=== PATIENT | male | born 2000 | race Two or more races ===

== ENCOUNTER 2022-09-15 17:06 | Inpatient (IN) ==
--- NOTE | 2022-09-15 17:43 | Emergency Department Note ---
Impression & Plan Depression with suicidal ideation ED Provider Note NAME: GEETA HARPER AGE: 22 SEX: M : 2000 ARRIVES VIA: [employer] INFORMANT: Patient, ED PROVIDER(S): Jayy Huitron DO CHIEF COMPLAINT: Depression HPI: The patient is a 22-year-old male who presented to the emergency department with police for an evaluation of mental health issues. The patient was at [facility] for an initial mental health evaluation. He does have a history of depression in the past. Apparently patient's had worsening of his depression especially over the last 2 to 3 weeks. He has had thoughts of suicide as well. The patient denies having any suicidal gestures. He did not use any alcohol or drugs. He denies having any fever or chills. He does complain of a slight cough but he notices it some friends at work of had a cough as well. The patient denies having any definite exposures to COVID-19. The patient was sent to the emergency department FOR thoughts of a possible inpatient treatment. ROS: See above HPI for pertinent positives & negatives. A total of 10 systems reviewed and were otherwise negative. PAST MEDICAL HISTORY: See Below PAST SURGICAL HISTORY: See Below FAMILY HISTORY: See Below SOCIAL HISTORY: See Below HOME MEDICATIONS: See Below ALLERGIES: See Below VITALS: See Below PHYSICAL EXAMINATION: GENERAL: Patient is awake alert in no acute distress patient is resting comfortably and showing no signs of anxiety EYES: The conjunctivae are clear. The pupils are round and reactive. EARS, NOSE, MOUTH AND THROAT: The nose is without any evidence of any deformity. NECK: The neck is nontender and supple. RESPIRATORY: Normal respiratory effort is noted there is no evidence of wheezing rhonchi or rales CARDIOVASCULAR: Regular rate and rhythm noted there no murmurs rubs or gallops normal S1 normal S2. GASTROINTESTINAL: The abdomen is soft. Abdomen is nontender. MUSCULOSKELETAL/EXTREMITIES: There is no evidence of gross deformity full range of motion is noted in the hips and shoulders. SKIN: There is no obvious evidence of any rash. There are no petechiae, pallor or cyanosis noted. NEUROLOGIC: Patient is awake alert and oriented x3. Gait was steady PSYCH: Patient makes good eye contact mostly evaluation. His affect is flat. The patient continues to admit to suicidal ideation with a plan to walk out in front of traffic. MEDICAL DECISION MAKING: The patient is a 22-year-old male who presented to the emergency department for an evaluation of mental health issues. The patient does have a history of depression but this seems to be worsening especially over the course of the last few weeks. He started having depression as well as suicidal ideation. He started voicing a plan with his initial therapy visit with [facility]. For this reaso n he was sent to the emergency department for further evaluation. The patient was medically cleared in the emergency department. The patient was evaluated by the mental health pillowcase cleaner. I discussed the patient's condition with the emergency department mental health pillowcase cleaner. The case was referred to [facility] The patient was felt to be a good candidate for inpatient treatment on [facility]. and ultimately was accepted there. Triage Nursing notes reviewed. Prior medical records reviewed Vital Signs: reviewed and remarkable for no significant abnormalities Differential diagnosis: Mood disorder, infection, hypoglycemia, electrolyte abnormalities, cardiac sources, intracerebral event, toxicologic, trauma, neurologic, as well as other pathologies. ER treatment provided: See below Diagnostics interpreted by me: ECG: none Laboratory studies: As stated above and show below. Imaging studies: See below. Radiographic imaging was reviewed by myself Consultation(s): The patient was referred to [facility] and evaluated in the emergency department by them. Past Med/Surg History Medical History Depression Social History Smoking Status: Never smoker Preferred Language: Belarusian Feels Safe at Home: Yes Gender Identity: Male Home Meds Home Medications Medication Instructions Recorded Confirmed cholecalciferol (vitamin D3) 25 25 mcg PO DAILY 09/15/22 09/15/22 mcg (1,000 unit) tablet (Vitamin D3) omega-3 fatty acids 1 cap PO DAILY 09/15/22 09/15/22 Results & Data (ED) Vital Signs Vital Signs - 24 hr 09/15/22 17:44 Temperature 36.8 C Temperature Source Oral Pulse Rate 68 Pulse Rhythm Regular Pulse Strength Normal Respiratory Rate 16 Respiratory Effort / Characteristics Non-Labored Respiratory Depth Normal Blood Pressure 121/74 Blood Pressure Mean 89 Pulse Oximetry 98 Oxygen Delivery Method Room Air Sepsis Recent Fever Within 48 Hours No Sepsis New/Unexplained Change in Mental Status No Sepsis Action Taken by Nursing No Action Required Home Medications Current Medication List: was personally reviewed by me Laboratory Data Attestation: I reviewed the patient's lab results. 09/15/22 17:35 09/15/22 17:35 Lab Results 09/15/22 09/15/22 09/15/22 Range/Units 17:24 17:35 17:35 WBC 7.07 (4.8-10.8) K/ul RBC 4.88 (4.70-6.10) M/uL Hgb 14.3 (14.0-18.0) g/dl Hct 43.6 (42.0-52.0) % MCV 89.3 (80.0-100.0) fL MCH 29.3 (25.0-34.0) pg MCHC 32.8 (32.0-36.0) g/dL RDW Std Deviation 39.1 (36.4-46.3) fL RDW Coeff of Criss 12.0 (11.5-14.5) % Plt Count 183 (130-400) K/uL MPV 10.5 (9.4-12.4) fL Immature Gran % (Auto) 0.3 % Neut % (Auto) 46.2 % Lymph % (Auto) 41.3 % Gonzales % (Auto) 8.5 % Eos % (Auto) 3.3 % Baso % (Auto) 0.4 % Neut # (Auto) 3.27 (1.40-6.50) K/uL Lymph # (Auto) 2.92 (1.2-3.4) K/uL Gonzales # (Auto) 0.60 H (0.11-0.59) K/uL Eos # (Auto) 0.23 (0-0.50) K/uL Baso # (Auto) 0.03 (0-0.2) K/uL Immature Gran # (Auto) 0.02 (0.01-0.20) K/uL Sodium 140 (136-145) mmol/L Potassium 3.9 (3.5-5.1) mmol/L Chloride 106 (98-107) mmol/L Carbon Dioxide 31 (21-32) mmol/L Anion Gap 3 (3-11) BUN 13 (6-23) mg/dl Creatinine 0.81 (0.6-1.4) mg/dl Est Cr Clr Drug Dosing 128.8 ml/min Est GFR ( Amer) 145.2 ml/min Est GFR (Non-Af Amer) 125.3 ml/min BUN/Creatinine Ratio 16.0 (10-20) Glucose 80 (70-99(Fasting)) mg/dl Calcium 9.8 (8.5-10.1) mg/dl Total Bilirubin 0.8 (0.2-1.0) mg/dl AST 16 (13-39) U/L ALT 10 (7-52) U/L Alkaline Phosphatase 61 (34-104) U/L Total Protein 7.3 (6.0-8.3) gm/dl Albumin 4.7 (3.4-5.0) gm/dl Globulin 2.6 (2.5-4.0) gm/dl Albumin/Globulin Ratio 1.8 (0.9-2) TSH (0.300-4.500) uIu/ml Urine Color Urine Appearance (Clear) Urine pH (4.5-7.5) Ur Specific [place] (1.000-1.030) Urine Protein (Negative) Urine Glucose (UA) (Negative) Urine Ketones (Negative) Urine Blood (Negative) Urine Nitrite (Negative) Urine Bilirubin (Negative) Urine Urobilinogen (Negative) Ur Leukocyte Esterase (Negative) Salicylates (3.0-30) mg/dl Acetaminophen (10-30) ug/ml Ethyl Alcohol mg/dL (<10.0) mg/dl SARS-CoV-2, RNA, NAAT NEGATIVE (NEGATIVE) 09/15/22 09/15/22 09/15/22 Range/Units 17:35 17:35 17:35 WBC (4.8-10.8) K/ul RBC (4.70-6.10) M/uL Hgb (14.0-18.0) g/dl Hct (42.0-52.0) % MCV (80.0-100.0) fL MCH (25.0-34.0) pg MCHC (32.0-36.0) g/dL RDW Std Deviation (36.4-46.3) fL RDW Coeff of Criss (11.5-14.5) % Plt Count (130-400) K/uL MPV (9.4-12.4) fL Immature Gran % (Auto) % Neut % (Auto) % Lymph % (Auto) % Gonzales % (Auto) % Eos % (Auto) % Baso % (Auto) % Neut # (Auto) (1.40-6.50) K/uL Lymph # (Auto) (1.2-3.4) K/uL Gonzales # (Auto) (0.11-0.59) K/uL Eos # (Auto) (0-0.50) K/uL Baso # (Auto) (0-0.2) K/uL Immature Gran # (Auto) (0.01-0.20) K/uL Sodium (136-145) mmol/L Potassium (3.5-5.1) mmol/L Chloride (98-107) mmol/L Carbon Dioxide (21-32) mmol/L Anion Gap (3-11) BUN (6-23) mg/dl Creatinine (0.6-1.4) mg/dl Est Cr Clr Drug Dosing ml/min Est GFR ( Amer) ml/min Est GFR (Non-Af Amer) ml/min BUN/Creatinine Ratio (10-20) Glucose (70-99(Fasting)) mg/dl Calcium (8.5-10.1) mg/dl Total Bilirubin (0.2-1.0) mg/dl AST (13-39) U/L ALT (7-52) U/L Alkaline Phosphatase (34-104) U/L Total Protein (6.0-8.3) gm/dl Albumin (3.4-5.0) gm/dl Globulin (2.5-4.0) gm/dl Albumin/Globulin Ratio (0.9-2) TSH 2.812 (0.300-4.500) uIu/ml Urine Color Urine Appearance (Clear) Urine pH (4.5-7.5) Ur Specific [place] (1.000-1.030) Urine Protein (Negative) Urine Glucose (UA) (Negative) Urine Ketones (Negative) Urine Blood (Negative) Urine Nitrite (Negative) Urine Bilirubin (Negative) Urine Urobilinogen (Negative) Ur Leukocyte Esterase (Negative) Salicylates < 3.0 L (3.0-30) mg/dl Acetaminophen < 3 L (10-30) ug/ml Ethyl Alcohol mg/dL < 10.0 (<10.0) mg/dl SARS-CoV-2, RNA, NAAT (NEGATIVE) 09/15/22 Range/Units 19:49 WBC (4.8-10.8) K/ul RBC (4.70-6.10) M/uL Hgb (14.0-18.0) g/dl Hct (42.0-52.0) % MCV (80.0-100.0) fL MCH (25.0-34.0) pg MCHC (32.0-36.0) g/dL RDW Std Deviation (36.4-46.3) fL RDW Coeff of Criss (11.5-14.5) % Plt Count (130-400) K/uL MPV (9.4-12.4) fL Immature Gran % (Auto) % Neut % (Auto) % Lymph % (Auto) % Gonzales % (Auto) % Eos % (Auto) % Baso % (Auto) % Neut # (Auto) (1.40-6.50) K/uL Lymph # (Auto) (1.2-3.4) K/uL Gonzales # (Auto) (0.11-0.59) K/uL Eos # (Auto) (0-0.50) K/uL Baso # (Auto) (0-0.2) K/uL Immature Gran # (Auto) (0.01-0.20) K/uL Sodium (136-145) mmol/L Potassium (3.5-5.1) mmol/L Chloride (98-107) mmol/L Carbon Dioxide (21-32) mmol/L Anion Gap (3-11) BUN (6-23) mg/dl Creatinine (0.6-1.4) mg/dl Est Cr Clr Drug Dosing ml/min Est GFR ( Amer) ml/min Est GFR (Non-Af Amer) ml/min BUN/Creatinine Ratio (10-20) Glucose (70-99(Fasting)) mg/dl Calcium (8.5-10.1) mg/dl Total Bilirubin (0.2-1.0) mg/dl AST (13-39) U/L ALT (7-52) U/L Alkaline Phosphatase (34-104) U/L Total Protein (6.0-8.3) gm/dl Albumin (3.4-5.0) gm/dl Globulin (2.5-4.0) gm/dl Albumin/Globulin Ratio (0.9-2) TSH (0.300-4.500) uIu/ml Urine Color Yellow Urine Appearance Clear (Clear) Urine pH 5.5 (4.5-7.5) Ur Specific [place] 1.026 (1.000-1.030) Urine Protein Negative (Negative) Urine Glucose (UA) Negative (Negative) Urine Ketones Trace H (Negative) Urine Blood Negative (Negative) Urine Nitrite Negative (Negative) Urine Bilirubin Negative (Negative) Urine Urobilinogen Negative (Negative) Ur Leukocyte Esterase Negative (Negative) Salicylates (3.0-30) mg/dl Acetaminophen (10-30) ug/ml Ethyl Alcohol mg/dL (<10.0) mg/dl SARS-CoV-2, RNA, NAAT (NEGATIVE) Imaging Data Attestation: I personally reviewed and interpreted this imaging study as follows: My Impression: 1 view chest x-ray was obtained in the emergency department. My interpretation is no definite infiltrate Radiologist's Impression: Chest X-Ray 09/15/22 17:21 XR chest 1V portable HISTORY: 22 years-old Male cough acute cough COMPARISON: None TECHNIQUE: AP view of the chest FINDINGS: Cardiomediastinal and hilar silhouettes are within normal limits. No pneumothorax, pleural effusion, airspace consolidation or overt pulmonary edema. Bones appear grossly intact. Mild gaseous distention of the splenic flexure. IMPRESSION: No acute process. ACT 112: Negative or not required by law. The above report was generated using voice recognition software. It may contain grammatical, syntax or spelling errors. Electronically signed by: Arcadio Upton M.D. 09/15/2022 6:32 PM Discharge Plan Visit Data Chief Complaint: Mental Health Evaluation ED Provider: Jayy Huitron Discharge Problem: Depression with suicidal ideation Patient Disposition: Still a Patient Forms Stand Alone Forms: My [facility], Suicide Prevention Resources Prescriptions Prescriptions: No Action cholecalciferol (vitamin D3) [Vitamin D3] 25 mcg (1,000 unit) Tablet 25 mcg PO DAILY [place] 3 Natural Fish Oil Conc Capsule 1 cap PO DAILY Referrals Referrals: PCP,NO [Physician] -
[2022-09-15 18:03] LABS: Basophils # (auto) 0.03 K/uL (0-0.2); Basophils % (auto) 0.4 %; Eosinophils # (auto) 0.23 K/uL (0-0.50); Eosinophils % (auto) 3.3 %; Hematocrit (blood only) 43.6 % (42.0-52.0); Hemoglobin 14.3 g/dl (14.0-18.0); Immature Granulocytes # (auto) 0.02 K/uL (0.01-0.20); Immature Granulocytes % (auto) 0.3 %; Lymphocytes # (auto) 2.92 K/uL (1.2-3.4); Lymphocytes % (auto) 41.3 %; Mean Corpuscular Hemoglobin 29.3 pg (25.0-34.0); Mean Corpuscular Hgb Conc 32.8 g/dL (32.0-36.0); Mean Corpuscular Volume 89.3 fL (80.0-100.0); Mean Platelet Volume 10.5 fL (9.4-12.4); Monocytes % (auto) 8.5 %; Neutrophils # (auto) 3.27 K/uL (1.40-6.50); Neutrophils % (auto) 46.2 %; Platelet Count 183 K/uL (130-400); RDW Standard Deviation 39.1 fL (36.4-46.3); Red Blood Count 4.88 M/uL (4.70-6.10); White Blood Count 7.07 K/ul (4.8-10.8)
[2022-09-15 18:07] LABS: Albumin Globulin Ratio 1.8 (0.9-2); Albumin Level 4.7 gm/dl (3.4-5.0); Bilirubin,Total 0.8 mg/dl (0.2-1.0); Calcium 9.8 mg/dl (8.5-10.1); Creatinine Clr Calc Pharmacy 128.8 ml/min; Est GFR (African American) 145.2 ml/min; Est GFR (Non-African American) 125.3 ml/min; Globulin 2.6 gm/dl (2.5-4.0); Potassium 3.9 mmol/L (3.5-5.1); Total Protein 7.3 gm/dl (6.0-8.3)
[2022-09-15 18:16] LABS: Acetaminophen < 3 ug/ml (10-30); Salicylate < 3.0 mg/dl (3.0-30)
--- NOTE | 2022-09-15 18:33 | XRay Report ---
XR chest 1V portable HISTORY: 22 years-old Male cough acute cough COMPARISON: None TECHNIQUE: AP view of the chest FINDINGS: Cardiomediastinal and hilar silhouettes are within normal limits. No pneumothorax, pleural effusion, airspace consolidation or overt pulmonary edema. Bones appear grossly intact. Mild gaseous distention of the splenic flexure. IMPRESSION: No acute process. ACT 112: Negative or not required by law. The above report was generated using voice recognition software. It may contain grammatical, syntax o r spelling errors. Electronically signed by: Arcadio Upton M.D. 09/15/2022 6:32 PM
[2022-09-15 20:21] LABS: Appearance Urine Clear (Clear); Bilirubin Urine Negative (Negative); Blood Urine Negative (Negative); Color Urine Yellow; Glucose Urine UA Negative (Negative); Ketones Urine Trace (Negative); Leukocyte Esterase Urine Negative (Negative); Nitrite Urine Negative (Negative); Protein Urine Negative (Negative); Specific Gravity Urine 1.026 (1.000-1.030); Urobilinogen Urine Negative (Negative); pH Urine 5.5 (4.5-7.5)
[2022-09-15] MEDS ORDERED: SODIUM CHLORIDE 0.65% NA SOLN 45 ML (OCEAN) PRN (20:35)
[2022-09-15] MEDS ORDERED: MAGNESIUM HYDROXIDE SUSP 30 ML UDC PO PRN (20:35)
[2022-09-15] MEDS ORDERED: ACETAMINOPHEN 325 MG TAB PO PRN (20:35)
[2022-09-15] MEDS ORDERED: BISMUTH SUBSALICYLATE LIQD 236 ML PO PRN (20:35)
[2022-09-15] MEDS ORDERED: ALUMINUM/MAGNESIUM SUSP 30 ML UDC PO PRN (20:35)
[2022-09-15] MEDS ORDERED: hydrOXYzine HCl 25 MG TAB PO PRN ×2 (20:35)
[2022-09-15 21:02] LABS: Amphetamines+Metham, Urine Neg (Neg); Barbiturates, Urine Neg (Neg); Benzodiazepine, Urine Neg (Neg); Cocaine, Urine Neg (Neg); MDMA (Ecstacy), Urine Neg (Neg); Methadone, Urine Neg (Neg); Opiate, Urine Neg (Neg); Phencyclidine, Urine Neg (Neg)
[2022-09-15] MEDS ORDERED: FLUARIX QUADRIVALENT 0.5 ML SYR IM ONE (21:45)
--- NOTE | 2022-09-16 07:32 | History & Physical ---
Date of Service September 16, 2022 Impression / Recommendations Impression Pleasant young man who is beset with ruminations about failure who presents a roughly 7-month history of slowly-worsening depression with rapid worsening over the past 2 weeks. He certainly meets criteria for a severe major depressive episode with anxious distress. His ruminations about various supposed failings may be a depressive symptom, but we will need to monitor for possible OCD. Pt is worried about potential sedating effect of medication and doesn't want to take anything that could impair his focus or concentration. (1) Major depressive disorder, single episode, severe with anxious distress: Present on Admission?: Yes (2) Vitamin D deficiency: Present on Admission?: Yes Plan 09/16/2022: * start bupropion XL 150 mg QAM (unlikely to be sedating, may help with focus/concentration, may address anhedonia) * cholecalciferol 10,000 IU daily (level low despite supposed replacement therapy; I'm concerned that ergocalciferol weekly will be too difficult for him to remember consistently following discharge, so will load with 70,000 IU/wk for 1 month then have him drop to 2,000 IU daily) * pt expresses strong interest in psychotherapy so will try to ensure appointments for this are in place * The patient was admitted to the [facility] ([facility] unit) on q15 min checks (behavioral with suicide precautions) for safety. The patient will participate in group, recreational, and milieu therapies and will be offered additional individual and family sessions as clinically appropriate. Inventory Assets Strengths: intelligent, able to verbalize needs Needs: isolated, highly self-critical Suicide Risk Level Suicide Risk Level: Moderate (q15 min suicide checks) Suicide Risk Level Comments: pt contracts for safety while hospitalized but remains preoccupied with a sense that his life has failed Risk Factors Assessment Male: Yes : No Do You Have Access To A Gun?: No Health Problems: No Mental Health Diagnoses: No Substance Use Disorders: No Previous Attempt: No Family History of Suicide: No Previous Psychiatric Hospitalization: No Protective Factors Assessment Hoahaoism Beliefs: Yes 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 Chief Complaint "I just don't think I can manage". 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 He eventually started thinking of all the toxic chemicals in his lab he could ingest and revealed that thought to a therapist at [facility] who referred him to the ED. Pt reports that about 6 months ago he started to lose interest in his usual activities such as singing in the choir at his [employer]. He's never been very social but began being even less social. He "started ruminating about failure" academically and did see one of his grades drop to a C. His energy declined and he began spending his days in bed and staying up all night trying to complete assignments. He is aware of the reverberating effect of pulling all- nighters and sleeping all day, and isn't sure he can tell which started first. His appetite gradually diminished but he doesn't think his weight has changed. He worries that his ability to focus has been worsening. He has been anhedonic and doesn't have a libido. Pt says that all his life people have told him he "should have more social contact" than he's really been interested in but that he's withdrawn even more over the past few months. He has relatives in [place] but he doesn't talk to them much. The only person with whom he interacts lately is his roommate. Pt tells me he's not sure he really wants to be but he certainly doesn't want to go on feeling like this. He says he "can't take this constant worry". He wrote letters to relatives "to say farewell" and started disposing of his belongings. Past Psychiatric History Current Psychiatric Diagnosis: Depression Previous Psych Admissions: none Do You Have Access To A Gun?: No History of Previous Suicide Attempt: No Allergies Allergy/AdvReac Type Severity Reaction Status Date / Time No Known Allergies Allergy Unverified 09/15/22 21:41 Home Medications Medication Instructions Recorded Confirmed Type cholecalciferol (vitamin D3) 25 25 mcg PO DAILY 09/15/22 09/15/22 History mcg (1,000 unit) tablet (Vitamin D3) omega-3 fatty acids 1 cap PO DAILY 09/15/22 09/15/22 History Family History Family History of: Doesn't Know Alcohol History Hx of Alcohol Use Over the Past 12 Months: No AUDIT Total Score: 0 Smoking Use Have You Smoked or Used Tobacco Products in the Last 30 Days: No Smoking Status: Never smoker Substance History Hx of Prescription Med Misuse Over the Past 12 Months: No Hx of Over the Counter Med Misuse Over the Past 12 Months: No Hx of Inhalent Misuse Over the Past 12 Months: No Hx of Organic Substance Use Over the Past 12 Months: No Hx of Illegal Substances/Street Drug Use Over Past 12 Months: No Problems as a Result of Past Substance Use: None Identified Personal History Living Arrangements: Apartment Beliefs That Will Affect Care: Hoahaoism and Spiritual Patient History Medical History Depression Social History Smoking Status: Never smoker Preferred Language: Ivorian Communication Ability: Effective [employer] Supervisor Required: No Beliefs That Will Affect Care: Hoahaoism and Spiritual Feels Safe at Home: Yes Gender Identity: Male Assistive Devices: None Physical Exam Psychiatric: Orientation: alert, oriented to person, oriented to place and oriented to time Apperance: appropriately dressed and appropriately groomed thin Eye Contact: + poor eye contact (looks to the floor most of the time) Motor Behavior: steady gait and station wrings hands a lot and occasionally rocks back and forth normal latency and rate, very quiet, and abbreviated Affect: + depressed affect and + anxious affect Mood: + depressed mood and + anxious mood Thought Process: + perseveration (on supposed failings) Thought Content: + preoccupation, + cognitive distortions, + worthlessness and + self deprecation Suicidal Thoughts: denies suicidal plan (while in the hospital); + reports suicidal thoughts Homicidal Thoughts: denies homicidal thoughts Hallucinations: no auditory hallucinations and no visual hallucinations Cognition: recent memory grossly intact, remote memory grossly intact and language grossly intact; + attention not intact Estimated Intelligence: + above average estimated intelligence Insight: + fair insight Judgment: + limited judgement Vital Signs (Past 24 Hours): Last Vital Signs Temp 36.8 C 09/16/22 06:35 Pulse 85 09/16/22 06:36 Resp 16 09/16/22 06:35 BP 107/70 09/16/22 06:36 Pulse Ox 98 09/15/22 21:26 O2 Del Method Room Air 09/15/22 21:26 Exam Statement: A physical exam was performed in the ED for the purposes of medical clearance. I accept that physical as correct and adequate for the purposes of the inpatient physical exam. Results & Data ([facility]) Laboratory Results Laboratory Results - last 24 hr 09/15/22 09/15/22 09/15/22 17:24 17:35 17:35 WBC 7.07 RBC 4.88 Hgb 14.3 Hct 43.6 MCV 89.3 MCH 29.3 MCHC 32.8 RDW Std Deviation 39.1 RDW Coeff of Criss 12.0 Plt Count 183 MPV 10.5 Immature Gran % (Auto) 0.3 Neut % (Auto) 46.2 Lymph % (Auto) 41.3 Grant % (Auto) 8.5 Eos % (Auto) 3.3 Baso % (Auto) 0.4 Neut # (Auto) 3.27 Lymph # (Auto) 2.92 Grant # (Auto) 0.60 H Eos # (Auto) 0.23 Baso # (Auto) 0.03 Immature Gran # (Auto) 0.02 Sodium 140 Potassium 3.9 Chloride 106 Carbon Dioxide 31 Anion Gap 3 BUN 13 Creatinine 0.81 Est Cr Clr Drug Dosing 128.8 Est GFR ( Amer) 145.2 Est GFR (Non-Af Amer) 125.3 BUN/Creatinine Ratio 16.0 Glucose 80 Calcium 9.8 Total Bilirubin 0.8 AST 16 ALT 10 Alkaline Phosphatase 61 Total Protein 7.3 Albumin 4.7 Globulin 2.6 Albumin/Globulin Ratio 1.8 25-OH Vitamin D Total TSH Urine Color Urine Appearance Urine pH Ur Specific [place] Urine Protein Urine Glucose (UA) Urine Ketones Urine Blood Urine Nitrite Urine Bilirubin Urine Urobilinogen Ur Leukocyte Esterase Salicylates Urine Opiates Screen Ur Methadone, Qual Acetaminophen Urine Barbiturates Ur Phencyclidine (PCP) U Amphetamin/Meth Scrn MDMA (Ecstasy) Screen U Benzodiazepines Scrn Ur Cocaine Metabolite U Marijuana (THC) Screen Ethyl Alcohol mg/dL SARS-CoV-2, RNA, NAAT NEGATIVE 09/15/22 09/15/22 09/15/22 17:35 17:35 17:35 WBC RBC Hgb Hct MCV MCH MCHC RDW Std Deviation RDW Coeff of Criss Plt Count MPV Immature Gran % (Auto) Neut % (Auto) Lymph % (Auto) [place] % (Auto) Eos % (Auto) Baso % (Auto) Neut # (Auto) Lymph # (Auto) Grant # (Auto) Eos # (Auto) Baso # (Auto) Immature Gran # (Auto) Sodium Potassium Chloride Carbon Dioxide Anion Gap BUN Creatinine Est Cr Clr Drug Dosing Est GFR ( Amer) Est GFR (Non-Af Amer) BUN/Creatinine Ratio Glucose Calcium Total Bilirubin AST ALT Alkaline Phosphatase Total Protein Albumin Globulin Albumin/Globulin Ratio 25-OH Vitamin D Total TSH 2.812 Urine Color Urine Appearance Urine pH Ur Specific [place] Urine Protein Urine Glucose (UA) Urine Ketones Urine Blood Urine Nitrite Urine Bilirubin Urine Urobilinogen Ur Leukocyte Esterase Salicylates < 3.0 L Urine Opiates Screen Ur Methadone, Qual Acetaminophen < 3 L Urine Barbiturates Ur Phencyclidine (PCP) U Amphetamin/Meth Scrn MDMA (Ecstasy) Screen U Benzodiazepines Scrn Ur Cocaine Metabolite U Marijuana (THC) Screen Ethyl Alcohol mg/dL < 10.0 SARS-CoV-2, RNA, NAAT 09/15/22 09/15/22 09/15/22 17:35 19:49 19:49 WBC RBC Hgb Hct MCV MCH MCHC RDW Std Deviation RDW Coeff of Criss Plt Count MPV Immature Gran % (Auto) Neut % (Auto) Lymph % (Auto) [place] % (Auto) Eos % (Auto) Baso % (Auto) Neut # (Auto) Lymph # (Auto) Grant # (Auto) Eos # (Auto) Baso # (Auto) Immature Gran # (Auto) Sodium Potassium Chloride Carbon Dioxide Anion Gap BUN Creatinine Est Cr Clr Drug Dosing Est GFR ( Amer) Est GFR (Non-Af Amer) BUN/Creatinine Ratio Glucose Calcium Total Bilirubin AST ALT Alkaline Phosphatase Total Protein Albumin Globulin Albumin/Globulin Ratio 25-OH Vitamin D Total 20.3 L TSH Urine Color Yellow Urine Appearance Clear Urine pH 5.5 Ur Specific [place] 1.026 Urine Protein Negative Urine Glucose (UA) Negative Urine Ketones Trace H Urine Blood Negative Urine Nitrite Negative Urine Bilirubin Negative Urine Urobilinogen Negative Ur Leukocyte Esterase Negative Salicylates Urine Opiates Screen Neg Ur Methadone, Qual Neg Acetaminophen Urine Barbiturates Neg Ur Phencyclidine (PCP) Neg U Amphetamin/Meth Scrn Neg MDMA (Ecstasy) Screen Neg U Benzodiazepines Scrn Neg Ur Cocaine Metabolite Neg U Marijuana (THC) Screen Neg Ethyl Alcohol mg/dL SARS-CoV-2, RNA, NAAT Current Inpatient Medications Current Inpatient Medications: Current Inpatient Medications Acetaminophen (Acetaminophen 325 Mg Tab) 650 mg PO Q4H PRN PRN Reason: Headache or Minor Fever Stop: 10/15/22 20:34 Al Hydrox/Mg Hydrox/Simethicone (Aluminum/Magnesium Susp 30 Ml Udc) 30 ml PO Q4H PRN PRN Reason: GI Upset Stop: 10/15/22 20:34 Bismuth Subsalicylate (Bismuth Subsalicylate Liqd 236 Ml) 15 ml PO PRN PRN PRN Reason: Loose Stool Stop: 10/15/22 20:34 Hydroxyzine HCl (Hydroxyzine Hcl 25 Mg Tab) 25 mg PO Q4H PRN PRN Reason: Anxiety Stop: 10/15/22 20:34 Hydroxyzine HCl (Hydroxyzine Hcl 25 Mg Tab) 50 mg PO HSZ PRN PRN Reason: Insomnia Stop: 10/15/22 20:34 Magnesium Hydroxide (Magnesium Hydroxide Susp 30 Ml Udc) 30 ml PO DAILY PRN PRN Reason: Constipation Stop: 10/15/22 20:34 Sodium Chloride (Sodium Chloride 0.65% Na Soln 45 Ml ([place])) 1 - 2 sprays NA PRN PRN PRN Reason: Nasal Dryness/Congestion Stop: 10/15/22 20:34
[2022-09-17] MEDS: CHOLECALCIFEROL 5,000 UNITS 125 MCG TAB PO SCH (08:31)
[2022-09-17] MEDS: buPROPion XL 150 MG TABCR PO SCH (08:31)
--- NOTE | 2022-09-17 09:37 | Psychiatric Progress Note ---
Date of Service September 17, 2022 Impression / Recommendations Impression 09/17/2022: Pt has participated fairly well in the milieu. He reports feeling somewhat less overwhelmed but continues to ruminate. He's "not sure" if there have been any adverse effects attributable to having started bupropion XL 150 mg. Pt has not yet been in contact with family. He says he'd prefer to "wait until all the answers are available" (i.e., treatment is settled, outpatient plan is set, prognosis is clear). I suggested this would more appropriately be a series of communications. 09/16/2022: Pleasant young man who is beset with ruminations about failure who presents a roughly 7-month history of slowly-worsening depression with rapid worsening over the past 2 weeks. He certainly meets criteria for a severe major depressive episode with anxious distress. His ruminations about various supposed failings may be a depressive symptom, but we will need to monitor for possible OCD. Pt is worried about potential sedating effect of medication and doesn't want to take anything that could impair his focus or concentration. (1) Major depressive disorder, single episode, severe with anxious distress: (2) Vitamin D deficiency: Plan 09/17/2022: * continue bupropion XL 150 mg QAM * continue cholecalciferol 10,000 IU daily * encourage communication with family 09/16/2022: * start bupropion XL 150 mg QAM (unlikely to be sedating, may help with focus/co ncentration, may address anhedonia) * cholecalciferol 10,000 IU daily (level low despite supposed replacement therapy; I'm concerned that ergocalciferol weekly will be too difficult for him to remember consistently following discharge, so will load with 70,000 IU/wk for 1 month then have him drop to 2,000 IU daily) * pt expresses strong interest in psychotherapy so will try to ensure appointments for this are in place * The patient was admitted to the [facility] ([facility] on q15 min checks (behavioral with suicide precautions) for safety. The patient will participate in group, recreational, and milieu therapies and will be offered additional individual and family sessions as clinically appropriate. Inventory Assets Strengths: intelligent, able to verbalize needs Needs: isolated, highly self-critical Suicide Risk Level Suicide Risk Level: Moderate (q15 min suicide checks) Suicide Risk Level Comments: pt contracts for safety while hospitalized but remains preoccupied with a sense that his life has failed Risk Factors Assessment Male: Yes : No Do You Have Access To A Gun?: No Health Problems: No Mental Health Diagnoses: No Substance Use Disorders: No Previous Attempt: No Family History of Suicide: No Previous Psychiatric Hospitalization: No Protective Factors Assessment Episcopal Beliefs: Yes 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 Chief Complaint "Some better, I think". Review of Systems Sleep Information Total Hours of Sleep: 7.5 Meal Information Percent Meal Consumed - Breakfast: 100 Percent Meal Consumed - Lunch: 100 Percent Meal Consumed - Dinner: 100 Subjective Subjective Patient was seen & assessed and interval progress reviewed with treatment team nursing and social work Physical Exam Psychiatric Orientation: alert, oriented to person, oriented to place and oriented to time Apperance: appropriately dressed and appropriately groomed Eye Contact: + fair eye contact Motor Behavior: steady gait and station Affect: + depressed affect and + anxious affect Mood: + depressed mood and + anxious mood Thought Process: + perseveration (on supposed failings) Thought Content: + preoccupation, + cognitive distortions, + worthlessness and + self deprecation Suicidal Thoughts: denies suicidal plan (while in the hospital); + reports suicidal thoughts Homicidal Thoughts: denies homicidal thoughts Hallucinations: no auditory hallucinations and no visual hallucinations Cognition: recent memory grossly intact, remote memory grossly intact and language grossly intact; + attention not intact Estimated Intelligence: + above average estimated intelligence Insight: + fair insight Judgment: + limited judgement Vital Signs (Past 24 Hours) Last Vital Signs Temp 36.4 C L 09/17/22 06:36 Pulse 80 09/17/22 06:37 Resp 16 09/17/22 06:36 BP 107/63 09/17/22 06:37 Pulse Ox 98 09/15/22 21:26 O2 Del Method Room Air 09/15/22 21:26 Results & Data ([facility]) Current Inpatient Medications Current Inpatient Medications: Current Inpatient Medications Acetaminophen (Acetaminophen 325 Mg Tab) 650 mg PO Q4H PRN PRN Reason: Headache or Minor Fever Stop: 10/15/22 20:34 Al Hydrox/Mg Hydrox/Simethicone (Aluminum/Magnesium Susp 30 Ml Udc) 30 ml PO Q4H PRN PRN Reason: GI Upset Stop: 10/15/22 20:34 Bismuth Subsalicylate (Bismuth Subsalicylate Liqd 236 Ml) 15 ml PO PRN PRN PRN Reason: Loose Stool Stop: 10/15/22 20:34 Bupropion HCl (Bupropion Xl 150 Mg Tabcr) 150 mg PO QAM ILYA Stop: 10/17/22 08:59 Last Admin: 09/17/22 08:31 Dose: 150 mg Hydroxyzine HCl (Hydroxyzine Hcl 25 Mg Tab) 25 mg PO Q4H PRN PRN Reason: Anxiety Stop: 10/15/22 20:34 Hydroxyzine HCl (Hydroxyzine Hcl 25 Mg Tab) 50 mg PO HSZ PRN PRN Reason: Insomnia Stop: 10/15/22 20:34 Magnesium Hydroxide (Magnesium Hydroxide Susp 30 Ml Udc) 30 ml PO DAILY PRN PRN Reason: Constipation Stop: 10/15/22 20:34 Sodium Chloride (Sodium Chloride 0.65% Na Soln 45 Ml ([place])) 1 - 2 sprays NA P RN PRN PRN Reason: Nasal Dryness/Congestion Stop: 10/15/22 20:34 Vitamin D (Cholecalciferol 5,000 Units 125 Mcg Tab) 10,000 units PO QAM ILYA Stop: 10/17/22 08:59 Last Admin: 09/17/22 08:31 Dose: 10,000 units Mental Health & Subst Abuse Tx Psychiatrist Name of Psychiatrist: Sonya Schultz Psychiatrist's Date Of Appointment With Psychiatric Provider: 09/22/2022 Time of Appointment with Psychiatrist: 1:20pm Psychiatric Appointment Comment: [address] [place] [address] Therapist Name of Therapist: Patricia Noble Therapist's Date of Therapist Appointment: 10/02/2022 Time of Therapist Appointment: 2:30pm Therapy Appointment Comment: [address], [address], [place] [address] Physical Science Technician Name of Physical Science Technician: [facility] Phone Number for Physical Science Technician: [phone] Case Management Appointment Comment: Zoom link will be sent to [facility] email Post Discharge Appointments Primary Care Physician Name Of Family Doctor/PCP: [facility] Primary Care Time of Appointment with PCP: please follow up as needed Provider Appointment Comment: [facility] [place] [place] Contact Information Discharge Discharge Address: [facility] [address], [place] [address]
[2022-09-18] MEDS: buPROPion XL 150 MG TABCR PO SCH (09:31)
[2022-09-18] MEDS: CHOLECALCIFEROL 5,000 UNITS 125 MCG TAB PO SCH (09:31)
--- NOTE | 2022-09-18 15:31 | Psychiatric Progress Note ---
Date of Service September 18, 2022 Impression / Recommendations Impression 09/18/2022: Pt reports feeling less anxious and a little less depressed. He says he is not currently having any suicidal thoughts at all. Continues to ruminate - says he's "always been a worrier". Discussed strategies for getting "unstuck" when he starts to ruminate. Reports better sleep last night, though he did not use hydroxyzine. Reports no adverse effects attributable to bupropion. Says he's noted "a little energy boost". 09/17/2022: Pt has participated fairly well in the milieu. He reports feeling somewhat less overwhelmed but continues to ruminate. He's "not sure" if there have been any adverse effects attributable to having started bupropion XL 150 mg. Pt has not yet been in contact with family. He says he'd prefer to "wait until all the answers are available" (i.e., treatment is settled, outpatient plan is set, prognosis is clear). I suggested this would more appropriately be a series of communications. 09/16/2022: Pleasant young man who is beset with ruminations about failure who presents a roughly 7-month history of slowly-worsening depression with rapid worsening over the past 2 weeks. He certainly meets criteria for a severe major depressive episode with anxious distress. His ruminations about various supposed failings may be a depressive symptom, but we will need to monitor for possible OCD. Pt is worried about potential sedating effect of medication and doesn't want to take anything that could impair his focus or concentration. (1) Major depressive disorder, single episode, severe with anxious distress: (2) Vitamin D deficiency: Plan 09/18/2022: * discussed increasing bupropion XL to 300 mg; pt apprehensive about that so will continue 150 mg daily * continue cholecalciferol 10,000 IU daily * continue formulating a plan for post-discharge, which will be spring so potentially more isolating 09/17/2022: * continue bupropion XL 150 mg QAM * continue cholecalciferol 10,000 IU daily * encourage communication with family 09/16/2022: * start bupropion XL 150 mg QAM (unlikely to be sedating, may help with focus/concentration, may address anhedonia) * cholecalciferol 10,000 IU daily (level low despite supposed replacement therapy; I'm concerned that ergocalciferol weekly will be too difficult for him to remember consistently following discharge, so will load with 70,000 IU/wk for 1 month then have him drop to 2,000 IU daily) * pt expresses strong interest in psychotherapy so will try to ensure appointments for this are in place * The patient was admitted to the [facility] on q15 min checks (behavioral with suicide precautions) for safety. The patient will participate in group, recreational, and milieu therapies and will be offered additional individual and family sessions as clinically appropriate. 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 Chief Complaint "A bit better". Review of Systems Sleep Information Total Hours of Sleep: 6.5 Meal Information Percent Meal Consumed - Breakfast: 100 Percent Meal Consumed - Lunch: 100 Percent Meal Consumed - Dinner: 100 Subjective Subjective Patient was seen & assessed and interval progress reviewed with treatment team nursing and social work Physical Exam Psychiatric Orientation: alert, oriented to person, oriented to place, oriented to time and cooperative Apperance: appropriately dressed and appropriately groomed Eye Contact: + fair eye contact Motor Behavior: steady gait and station and no abnormal motor movements Affect: + anxious affect Mood: + anxious mood Thought Process: + perseveration (on supposed failings) Thought Content: + preoccupation, + cognitive distortions and + self deprecation Suicidal Thoughts: denies suicidal thoughts, denies suicidal plan (while in the hospital) and denies suicidal intent Homicidal Thoughts: denies homicidal thoughts Hallucinations: no auditory hallucinations and no visual hallucinations Cognition: recent memory grossly intact, remote memory grossly intact, attention grossly intact and language grossly intact Estimated Intelligence: + above average estimated intelligence Insight: + fair insight Judgment: + fair judgement Vital Signs (Past 24 Hours) Last Vital Signs Temp 36.9 C 09/18/22 06:38 Pulse 98 H 09/18/22 06:39 Resp 16 09/18/22 06:38 BP 109/71 09/18/22 06:39 Pulse Ox 98 09/15/22 21:26 O2 Del Method Room Air 09/15/22 21:26 Results & Data ([facility]) Current Inpatient Medications Current Inpatient Medications: Current Inpatient Medications Acetaminophen (Acetaminophen 325 Mg Tab) 650 mg PO Q4H PRN PRN Reason: Headache or Minor Fever Stop: 10/15/22 20:34 Al Hydrox/Mg Hydrox/Simethicone (Aluminum/Magnesium Susp 30 Ml Udc) 30 ml PO Q4H PRN PRN Reason: GI Upset Stop: 10/15/22 20:34 Bismuth Subsalicylate (Bismuth Subsalicylate Liqd 236 Ml) 15 ml PO PRN PRN PRN Reason: Loose Stool Stop: 10/15/22 20:34 Bupropion HCl (Bupropion Xl 150 Mg Tabcr) 150 mg PO QAM ILYA Stop: 10/17/22 08:59 Last Admin: 09/18/22 09:31 Dose: 150 mg Hydroxyzine HCl (Hydroxyzine Hcl 25 Mg Tab) 25 mg PO Q4H PRN PRN Reason: Anxiety Stop: 10/15/22 20:34 Hydroxyzine HCl (Hydroxyzine Hcl 25 Mg Tab) 50 mg PO HSZ PRN PRN Reason: Insomnia Stop: 10/15/22 20:34 Magnesium Hydroxide (Magnesium Hydroxide Susp 30 Ml Udc) 30 ml PO DAILY PRN PRN Reason: Constipation Stop: 10/15/22 20:34 Sodium Chloride (Sodium Chloride 0.65% Na Soln 45 Ml ([place])) 1 - 2 sprays NA PRN PRN PRN Reason: Nasal Dryness/Congestion Stop: 10/15/22 20:34 Vitamin D (Cholecalciferol 5,000 Units 125 Mcg Tab) 10,000 units PO QAM ILYA Stop: 10/17/22 08:59 Last Admin: 09/18/22 09:31 Dose: 10,000 units Mental Health & Subst Abuse Tx Psychiatrist Name of Psychiatrist: Sonya Jackson- Betty Schultz Psychiatrist's Date Of Appointment With Psychiatric Provider: 09/22/2022 Time of Appointment with Psychiatrist: 1:20pm Psychiatric Appointment Comment: [address] [place] [address] Therapist Name of Therapist: Patricia Counseling- Aide Therapist's Date of Therapist Appointment: 10/02/2022 Time of Therapist Appointment: 2:30pm Therapy Appointment Comment: [address], [address], [place] [address] Satellite Instruction Facilitator Name of Satellite Instruction Facilitator: [facility] - Pauline Valladares Phone Number for Satellite Instruction Facilitator: [phone] Date of Appointment with Satellite Instruction Facilitator: 09/24/22 Time of Appointment with Satellite Instruction Facilitator: 9:00 AM Case Management Appointment Comment: Zoom link will be sent to your [facility] email. Post Discharge Appointments Primary Care Physician Name Of Family Doctor/PCP: [facility] Primary Care Time of Appointment with PCP: please follow up as needed Provider Appointment Comment: [facility] Contact Information Discharge Discharge Address: [address], [address], [place] [address]
[2022-09-19] MEDS: CHOLECALCIFEROL 5,000 UNITS 125 MCG TAB PO SCH (09:03)
[2022-09-19] MEDS: buPROPion XL 150 MG TABCR PO SCH (09:03)
--- NOTE | 2022-09-19 13:07 | Psychiatric Progress Note ---
Date of Service September 19, 2022 Impression / Recommendations Impression 09/19/2022: Looks considerably better today: has been able to smile, posture is more erect, eye contact is better. Speech is less circuitous and he's able to describe his thoughts and emotions more clearly and with more nuance. He's following recommendations by therapists and me diligently. For example he's considering signing up for a multiethnic dance group among other activities. 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 He reports "feeling a bit better". Nothing is worse. He no longer feels suicidal at all. Attributes no adverse effects to medications. Pt's mother suggested he look into [place]-3 supplementation (which we discussed as having weak evidence of some benefit for certain mood conditions but low apparent risk) and iron supplementation (which I recommended against in the absence of any deficiency and as having sufficient side effect risk to avoid unless a need is known). 09/18/2022: Pt reports feeling less anxious and a little less depressed. He says he is not currently having any suicidal thoughts at all. Continues to ruminate - says he's "always been a worrier". Discussed strategies for getting "unstuck" when he starts to ruminate. Reports better sleep last night, though he did not use hydroxyzine. Reports no adverse effects attributable to bupropion. Says he's noted "a little energy boost". 09/17/2022: Pt has participated fairly well in the milieu. He reports feeling somewhat less overwhelmed but continues to ruminate. He's "not sure" if there have been any adverse effects attributable to having started bupropion XL 150 mg. Pt has not yet been in contact with family. He says he'd prefer to "wait until all the answers are available" (i.e., treatment is settled, outpatient plan is set, prognosis is clear). I suggested this would more appropriately be a series of communications. 09/16/2022: Pleasant young man who is beset with ruminations about failure who presents a roughly 7-month history of slowly-worsening depression with rapid worsening over the past 2 weeks. He certainly meets criteria for a severe major depressive episode with anxious distress. His ruminations about various supposed failings may be a depressive symptom, but we will need to monitor for possible OCD. Pt is worried about potential sedating effect of medication and doesn't want to take anything that could impair his focus or concentration. (1) Major depressive disorder, single episode, severe with anxious distress: (2) Vitamin D deficiency: Plan 09/19/2022: * continue bupropion XL 150 mg daily * continue cholecalciferol 10,000 IU daily for 4 weeks, then 2,000 IU daily; recommend repeat level after 2-3 months 09/18/2022: * discussed increasing bupropion XL to 300 mg; pt apprehensive about that so will continue 150 mg daily * continue cholecalciferol 10,000 IU daily * continue formulating a plan for post-discharge, which will be spring so potentially more isolating 09/17/2022: * continue bupropion XL 150 mg QAM * continue cholecalciferol 10,000 IU daily * encourage communication with family 09/16/2022: * start bupropion XL 150 mg QAM (unlikely to be sedating, may help with focus/concentration, may address anhedonia) * cholecalciferol 10,000 IU daily (level low despite supposed replacement therapy; I'm concerned that ergocalciferol weekly will be too difficult for him to remember consistently following discharge, so will load with 70,000 IU/wk for 1 month then have him drop to 2,000 IU daily) * pt expresses strong interest in psychotherapy so will try to ensure appointments for this are in place * The patient was admitted to the [facility] ([facility]) on q15 min checks (behavioral with suicide precautions) for safety. The patient will participate in group, recreational, and milieu therapies and will be offered additional individual and family sessions as clinically appropriate. 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 Chief Complaint "I think a bit better". Review of Systems Sleep Information Total Hours of Sleep: 7.25 Meal Information Percent Meal Consumed - Breakfast: 100 Percent Meal Consumed - Lunch: 100 Percent Meal Consumed - Dinner: 100 Subjective Subjective Patient was seen & assessed and interval progress reviewed with treatment team nursing and social work Physical Exam Psychiatric Orientation: alert, oriented to person, oriented to place, oriented to time and cooperative Apperance: appropriately dressed and appropriately groomed Eye Contact: + fair eye contact Motor Behavior: steady gait and station and no abnormal motor movements Affect: + depressed affect and + anxious affect Mood: + depressed mood and + anxious mood Thought Process: + perseveration (on supposed failings) Thought Content: + preoccupation and + cognitive distortions Suicidal Thoughts: denies suicidal thoughts, denies suicidal plan and denies suicidal intent Homicidal Thoughts: denies homicidal thoughts Hallucinations: no auditory hallucinations and no visual hallucinations Cognition: recent memory grossly intact, remote memory grossly intact, attention grossly intact and language grossly intact Estimated Intelligence: + above average estimated intelligence Insight: + fair insight Judgment: + fair judgement Vital Signs (Past 24 Hours) Last Vital Signs Temp 36.8 C 09/19/22 06:40 Pulse 87 09/19/22 06:40 Resp 16 09/19/22 06:40 BP 110/70 09/19/22 06:40 Pulse Ox 98 09/15/22 21:26 O2 Del Method Room Air 09/15/22 21:26 Results & Data ([facility]) Current Inpatient Medications Current Inpatient Medications: Current Inpatient Medications Acetaminophen (Acetaminophen 325 Mg Tab) 650 mg PO Q4H PRN PRN Reason: Headache or Minor Fever Stop: 10/15/22 20:34 Al Hydrox/Mg Hydrox/Simethicone (Aluminum/Magnesium Susp 30 Ml Udc) 30 ml PO Q4H PRN PRN Reason: GI Upset Stop: 10/15/22 20:34 Bismuth Subsalicylate (Bismuth Subsalicylate Liqd 236 Ml) 15 ml PO PRN PRN PRN Reason: Loose Stool Stop: 10/15/22 20:34 Bupropion HCl (Bupropion Xl 150 Mg Tabcr) 150 mg PO QAM ILYA Stop: 10/17/22 08:59 Last Admin: 09/19/22 09:03 Dose: 150 mg Hydroxyzine HCl (Hydroxyzine Hcl 25 Mg Tab) 25 mg PO Q4H PRN PRN Reason: Anxiety Stop: 10/15/22 20:34 Hydroxyzine HCl (Hydroxyzine Hcl 25 Mg Tab) 50 mg PO HSZ PRN PRN Reason: Insomnia Stop: 10/15/22 20:34 Magnesium Hydroxide (Magnesium Hydroxide Susp 30 Ml Udc) 30 ml PO DAILY PRN PRN Reason: Constipation Stop: 10/15/22 20:34 Sodium Chloride (Sodium Chloride 0.65% Na Soln 45 Ml ([place])) 1 - 2 sprays NA PRN PRN PRN Reason: Nasal Dryness/Congestion Stop: 10/15/22 20:34 Vitamin D (Cholecalciferol 5,000 Units 125 Mcg Tab) 10,000 units PO QAM ILYA Stop: 10/17/22 08:59 Last Admin: 09/19/22 09:03 Dose: 10,000 units Mental Health & Subst Abuse Tx Psychiatrist Name of Psychiatrist: Sonya Schultz Psychiatrist's Date Of Appointment With Psychiatric Provider: 09/22/2022 Time of Appointment with Psychiatrist: 1:20pm Psychiatric Appointment Comment: [address] [place] [address] Therapist Name of Therapist: Patricia Noble Therapist's Date of Therapist Appointment: 10/02/2022 Time of Therapist Appointment: 2:30pm Therapy Appointment Comment: [address], [address], [place] [address] Components Engineer Name of Components Engineer: [facility] - Pauline Valladares Phone Number for Components Engineer: [phone] Date of Appointment with Components Engineer: 09/24/22 Time of Appointment with Components Engineer: 9:00 AM Case Management Appointment Comment: Zoom link will be sent to your [facility] email. Post Discharge Appointments Primary Care Physician Name Of Family Doctor/PCP: [facility] Primary Care Time of Appointment with PCP: please follow up as needed Provider Appointment Comment: [facility] [place] Contact Information Discharge Discharge Address: [address], [place] [address]
[2022-09-20] MEDS: CHOLECALCIFEROL 5,000 UNITS 125 MCG TAB PO SCH (09:21)
[2022-09-20] MEDS: buPROPion XL 150 MG TABCR PO SCH (09:21)
--- NOTE | 2022-09-20 11:49 | Discharge Summary ---
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 He eventually started thinking of all the toxic chemicals in his lab he could ingest and revealed that thought to a therapist at [facility] who referred him to the ED. Pt reports that about 6 months ago he started to lose interest in his usual activities such as singing in the choir at his [employer]. He's never been very social but began being even less social. He "started ruminating about failure" academically and did see one of his grades drop to a C. His energy declined and he began spending his days in bed and staying up all night trying to complete assignments. He is aware of the reverberating effect of pulling all- nighters and sleeping all day, and isn't sure he can tell which started first. His appetite gradually diminished but he doesn't think his weight has changed. He worries that his ability to focus has been worsening. He has been anhedonic and doesn't have a libido. Pt says that all his life people have told him he "should have more social contact" than he's really been interested in but that he's withdrawn even more over the past few months. He has relatives in [facility] but he doesn't talk to them much. The only person with whom he interacts lately is his roommate. Pt tells me he's not sure he really wants to be but he certainly doesn't want to go on feeling like this. He says he "can't take this constant worry". He wrote letters to relatives "to say farewell" and started disposing of his belongings. Physical Exam Vital Signs (Past 24 Hours) Last Vital Signs Temp 37.2 C 09/20/22 10:54 Pulse 92 H 09/20/22 10:54 Resp 18 09/20/22 10:54 BP 107/69 09/20/22 10:54 Pulse Ox 99 09/20/22 10:54 O2 Del Method Room Air 09/20/22 06:00 See admission H&P and DOD summary. Principal Diagnosis Major Depressive Disorder with anxious distress Psychiatric Data See daily stay summary. In short, patient was engaged with the social/therapeutic milieu of the unit, safety was maintained and the patient was cooperative with care. Medication changes included initiation of Vitamin D supplementation and Wellbutrin XL 150mg daily for MDD and they tolerated this well. After 1 month, on 10/21/2022 his Vitamin D supplementation can be reduced from 10,000 IU daily to 1,000 or 2,000 IU daily and recommend Vitamin D level be rechecked in 2-3 months. A support session with friends and a family session with his mother was held and safety plan was completed prior to discharge. He actively and insightfully participated in safety planning and in discussions about ways to seek support and recognizing warning signs and utilizing coping skills. Reviewed importance of seeking emergency care should SI intensify, worsen or should they feel unsafe in the future which they agree to do. On the day of discharge he stated his mood was "good and ready" and remained future- oriented including talking with his roommate, cleaning his room, going shopping for new pants, reviewing his mental health resources again to feel prepared to implement his new coping skills, talking to his mom, cooking himself dinner, exercising at the building and engaging in aftercare appointments for psychiatry and therapy. Day of Discharge Assessment Today the patient voices readiness for discharge. They note improvement in mood and anxiety. They deny thoughts of harm to self or others. Thoughts are organized and they are clinically improved from admission. There is no evidence of psychosis. They improved in the hospital with support and medication adjustments. They agree to take medications as prescribed and keep follow-up appointments. At the time of the discharge they are deemed to be stable and appropriate for outpatient level of care. They are not deemed to be at imminent risk of harm to self or others. They are aware of emergency and crisis services. Knows to call 911 or go to nearest emergency care center if in a crisis which cannot be handled as an outpatient. Transition of Care Transition Of Care Record: was reviewed with the patient Advance Directives Advance Directives Information Provided: Yes Advance Directives: No Mental Health Advance Directive: No Advance Directives on File: No Living Will: No Power of Directory Clerk: No Advance Directives Reason:: Declines as Mental Health Visit. Suicide Risk Level Suicide Risk Level Comments: Acute risk is low given improvement in mood and denial of SI, lack of access to lethal means, improvement in sleep schedule, hopefulness. Chronic risk is low given few non-modifiable risk factors: family lives far away but also with protective factors including employed/student, good social support from labmates and relative in [place], sense of responsibility to family and social supports, outpatient care in place,positive coping skills, positive problem solving, capacity to establish therapeutic alliance, willingness to engage with treatment and strong capacity for self-observation. Counseled on ways to reduce acute and chronic risk including engaging with outpatient providers, using safety plan if needed, utilizing supports, taking medication, and using coping skills. Modifiable risk factors of SI, anxiety and depression were addressed during hospitalization through development of new coping skills, family & support meeting, safety planning, and medication adjustments. 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 Relationships: Yes Supportive Family: Yes Discharge Data Lab Results 09/15/22 09/15/22 09/15/22 17:24 17:35 17:35 WBC 7.07 RBC 4.88 Hgb 14.3 Hct 43.6 MCV 89.3 MCH 29.3 MCHC 32.8 RDW Std Deviation 39.1 RDW Coeff of Criss 12.0 Plt Count 183 MPV 10.5 Immature Gran % (Auto) 0.3 Neut % (Auto) 46.2 Lymph % (Auto) 41.3 Linn % (Auto) 8.5 Eos % (Auto) 3.3 Baso % (Auto) 0.4 Neut # (Auto) 3.27 Lymph # (Auto) 2.92 Linn # (Auto) 0.60 H Eos # (Auto) 0.23 Baso # (Auto) 0.03 Immature Gran # (Auto) 0.02 Sodium 140 Potassium 3.9 Chloride 106 Carbon Dioxide 31 Anion Gap 3 BUN 13 Creatinine 0.81 Est Cr Clr Drug Dosing 128.8 Est GFR ( Amer) 145.2 Est GFR (Non-Af Amer) 125.3 BUN/Creatinine Ratio 16.0 Glucose 80 Calcium 9.8 Total Bilirubin 0.8 AST 16 ALT 10 Alkaline Phosphatase 61 Total Protein 7.3 Albumin 4.7 Globulin 2.6 Albumin/Globulin Ratio 1.8 25-OH Vitamin D Total TSH Urine Color Urine Appearance Urine pH Ur Specific [place] Urine Protein Urine Glucose (UA) Urine Ketones Urine Blood Urine Nitrite Urine Bilirubin Urine Urobilinogen Ur Leukocyte Esterase Salicylates Urine Opiates Screen Ur Methadone, Qual Acetaminophen Urine Barbiturates Ur Phencyclidine (PCP) U Amphetamin/Meth Scrn MDMA (Ecstasy) Screen U Benzodiazepines Scrn Ur Cocaine Metabolite U Marijuana (THC) Screen Ethyl Alcohol mg/dL SARS-CoV-2, RNA, NAAT NEGATIVE 09/15/22 09/15/22 09/15/22 17:35 17:35 17:35 WBC RBC Hgb Hct MCV MCH MCHC RDW Std Deviation RDW Coeff of Criss Plt Count MPV Immature Gran % (Auto) Neut % (Auto) Lymph % (Auto) Linn % (Auto) Eos % (Auto) Baso % (Auto) Neut # (Auto) Lymph # (Auto) Linn # (Auto) Eos # (Auto) Baso # (Auto) Immature Gran # (Auto) Sodium Potassium Chloride Carbon Dioxide Anion Gap BUN Creatinine Est Cr Clr Drug Dosing Est GFR ( Amer) Est GFR (Non-Af Amer) BUN/Creatinine Ratio Glucose Calcium Total Bilirubin AST ALT Alkaline Phosphatase Total Protein Albumin Globulin Albumin/Globulin Ratio 25-OH Vitamin D Total TSH 2.812 Urine Color Urine Appearance Urine pH Ur Specific [place] Urine Protein Urine Glucose (UA) Urine Ketones Urine Blood Urine Nitrite Urine Bilirubin Urine Urobilinogen Ur Leukocyte Esterase Salicylates < 3.0 L Urine Opiates Screen Ur Methadone, Qual Acetaminophen < 3 L Urine Barbiturates Ur Phencyclidine (PCP) U Amphetamin/Meth Scrn MDMA (Ecstasy) Screen U Benzodiazepines Scrn Ur Cocaine Metabolite U Marijuana (THC) Screen Ethyl Alcohol mg/dL < 10.0 SARS-CoV-2, RNA, NAAT 09/15/22 09/15/22 09/15/22 17:35 19:49 19:49 WBC RBC Hgb Hct MCV MCH MCHC RDW Std Deviation RDW Coeff of Criss Plt Count MPV Immature Gran % (Auto) Neut % (Auto) Lymph % (Auto) Linn % (Auto) Eos % (Auto) Baso % (Auto) Neut # (Auto) Lymph # (Auto) Linn # (Auto) Eos # (Auto) Baso # (Auto) Immature Gran # (Auto) Sodium Potassium Chloride Carbon Dioxide Anion Gap BUN Creatinine Est Cr Clr Drug Dosing Est GFR ( Amer) Est GFR (Non-Af Amer) BUN/Creatinine Ratio Glucose Calcium Total Bilirubin AST ALT Alkaline Phosphatase Total Protein Albumin Globulin Albumin/Globulin Ratio 25-OH Vitamin D Total 20.3 L TSH Urine Color Yellow Urine Appearance Clear Urine pH 5.5 Ur Specific [place] 1.026 Urine Protein Negative Urine Glucose (UA) Negative Urine Ketones Trace H Urine Blood Negative Urine Nitrite Negative Urine Bilirubin Negative Urine Urobilinogen Negative Ur Leukocyte Esterase Negative Salicylates Urine Opiates Screen Neg Ur Methadone, Qual Neg Acetaminophen Urine Barbiturates Neg Ur Phencyclidine (PCP) Neg U Amphetamin/Meth Scrn Neg MDMA (Ecstasy) Screen Neg U Benzodiazepines Scrn Neg Ur Cocaine Metabolite Neg U Marijuana (THC) Screen Neg Ethyl Alcohol mg/dL SARS-CoV-2, RNA, NAAT Hospital Course (1) Major depressive disorder, single episode, severe with anxious distress: (2) Vitamin D deficiency: Plan 09/19/2022: * continue bupropion XL 150 mg daily * continue cholecalciferol 10,000 IU daily for 4 weeks, then 2,000 IU daily; recommend repeat level after 2-3 months 09/18/2022: * discussed increasing bupropion XL to 300 mg; pt apprehensive about that so will continue 150 mg daily * continue cholecalciferol 10,000 IU daily * continue formulating a plan for post-discharge, which will be spring so potentially more isolating 09/17/2022: * continue bupropion XL 150 mg QAM * continue cholecalciferol 10,000 IU daily * encourage communication with family 09/16/2022: * start bupropion XL 150 mg QAM (unlikely to be sedating, may help with focus/concentration, may address anhedonia) * cholecalciferol 10,000 IU daily (level low despite supposed replacement therapy; I'm concerned that ergocalciferol weekly will be too difficult for him to remember consistently following discharge, so will load with 70,000 IU/wk for 1 month then have him drop to 2,000 IU daily) * pt expresses strong interest in psychotherapy so will try to ensure appointments for this are in place * The patient was admitted to the [facility] ([facility] mental health unit) on q15 min checks (behavioral with suicide precautions) for safety. The patient will participate in group, recreational, and milieu therapies and will be offered additional individual and family sessions as clinically appropriate. Mental Health & Subst Abuse Tx Psychiatrist Name of Psychiatrist: Sonya Schultz Psychiatrist's Date Of Appointment With Psychiatric Provider: 09/22/2022 Time of Appointment with Psychiatrist: 1:20pm Psychiatric Appointment Comment: [address] [place] [address] Psychiatrist Release of Information: Obtained, Reviewed and Signed Therapist Name of Therapist: Patricia Pearce- Aide Therapist's Date of Therapist Appointment: 10/02/2022 Time of Therapist Appointment: 2:30pm Therapy Appointment Comment: [address], [address], [place] [address] Therapist Release of Information: Obtained, Reviewed and Signed Sporting Goods Salesperson Name of Sporting Goods Salesperson: Student Care and Advocacy - Pauline Valladares Phone Number for Sporting Goods Salesperson: [phone] Date of Appointment with Sporting Goods Salesperson: 09/24/22 Time of Appointment with Sporting Goods Salesperson: 9:00 AM Case Management Appointment Comment: Zoom link will be sent to your [facility] email. Post Discharge Appointments Primary Care Physician Name Of Family Doctor/PCP: [facility] Primary Care Time of Appointment with PCP: please follow up as needed Provider Appointment Comment: [facility] Release of Information: Obtained, Reviewed and Signed Other #1: Name of Aftercare Appointment: [facility] ( support group) Phone Number of Aftercare Appointment: Time of Aftercare Appointment: please follow up if you'd like to join support group! Aftercare Appointment Comment: [address], [place] [address] Contact Information Discharge Discharge Address: [address], [address], [place] [address] Discharge Plan Discharge Items Patient Disposition: Home - Self-Care Reason For Visit: MDD Discharge Diagnosis: Major Depressive Disorder Activity: Resume your previous activity Non-emergency contact: Primary Care Provider, Psychiatrist and Therapist Call non-emergency contact if: you have any medication questions and your symptoms worsen Follow-up/Referrals: [facility] [Primary Care Provider] - Diet: Regular Addtl Attending Provider Instructions: SPECIAL CARE INSTRUCTIONS: 1. Follow through with your scheduled aftercare appointments. If unable to keep an appointment, please call to reschedule. 2. Take your medication only as prescribed. Medication should not be changed or stopped without the approval of your doctor. In the event of worsening symptoms or concerns about side effects, contact your doctor immediately. 3. Utilize new healthy coping skills, anger management skills, and stress management skills learned during your hospitalization. Journal feelings and process them with a support person. Identify stressors or situations that may result in relapse, deterioration or inappropriate behaviors and develop a plan to deal with those issues. 4. If your coping skills are ineffective and you are in crisis, contact your outpatient providers for direction. If unable to reach your providers, please call the [facility] CRISIS LINE AT , go to the [facility] walk-in center at [address] [place] [address] [address], [place], or go to the closest Emergency Room. 5. Avoid alcohol and un-prescribed drugs. 6. You have been provided with the Mental Health Advance Directives Pamphlet for your review. 7. Your condition is stable for discharge to outpatient level of care, but recovery is an ongoing process. Ifthoughts to harm yourself or others return, follow the safety plan developed during your stay. Planning for a safe return home includes securing weapons. Our treatment team recommends weaponsbe removed from the home until your outpatient provider reassesses your progress. In rare cases where the items themselvescannot be removed, guns and ammunitionshould be secured separatelyand keys stored by a reliable personoutside of the home. If you were admitted on an involuntary commitment, the police or other legal authorities may be involved in this process. AFTERCARE APPOINTMENTS: * Please call your insurance company prior to your scheduled appointment to confirm your aftercare providers are covered. Take your insurance information to your appointments. WHO TO CALL AND WHEN: Medical Emergencies: For questions or emergencies related to your hospital stay, please contact the Inpatient Behavioral Health Unit at [phone]. A hospital personnel director is on-call 09/02 for the Behavioral Health Unit for emergencies At any time you feel your situation is an emergency, you may also call 911 immediately. Pending Studies at Discharge: No Stand-Alone Forms: My [facility] Medications and DC Order Prescriptions: New cholecalciferol (vitamin D3) 125 mcg (5,000 unit) Tablet 10,000 unit PO QAM 30 Days Qty: 30 0RF bupropion HCl 150 mg Tablet Extended Release 24 Hr 150 mg PO QAM 30 Days Qty: 30 0RF Continued omega-3 fatty acids Capsule 1 cap PO DAILY Discontinued cholecalciferol (vitamin D3) [Vitamin D3] 25 mcg (1,000 unit) Tablet 25 mcg PO DAILY Discharge Orders: Discharge Order (Routine); Ordered 09/20/22 Ordered By: Romi Jay Admission Data Admit Date/Time: 09/15/22 20:35 Attending Provider: Hamzah Mccray Admit Provider: Hamzah Mccray Primary Care Provider: [facility] Other Interventions: Discharge Summary Assessment (RN) Last Done: 09/20/22 10:54 PSY Interdisciplinary Discharge Planning Last Done: 09/20/22 11:43 Coding Level of Care Code 43520 D/C day mgmt > 30 min Diagnoses Major depressive disorder, single episode, severe with anxious distress F32.2 Vitamin D deficiency E55.9 Time Spent (min) 45
== END 2022-09-20 12:50 | disposition home or self-care (01) | DRG 885 ==
LOC: ED 17:06 → 3S 20:35

== ENCOUNTER 2022-10-27 05:56 | Inpatient (IN) ==
[2022-10-27 06:47] LABS: Appearance Urine Clear (Clear); Bilirubin Urine 1+ (Negative); Blood Urine Negative (Negative); Color Urine Yellow; Glucose Urine UA Negative (Negative); Ketones Urine Negative (Negative); Leukocyte Esterase Urine Negative (Negative); Nitrite Urine Negative (Negative); Protein Urine Trace (Negative); Specific Gravity Urine >= 1.030 (1.000-1.030); Urobilinogen Urine Negative (Negative)
[2022-10-27 06:55] LABS: Basophils # (auto) 0.01 K/uL (0-0.2); Basophils % (auto) 0.2 %; Eosinophils # (auto) 0.14 K/uL (0-0.50); Eosinophils % (auto) 3.4 %; Hematocrit (blood only) 42.2 % (42.0-52.0); Hemoglobin 14.1 g/dl (14.0-18.0); Immature Granulocytes # (auto) 0.01 K/uL (0.01-0.20); Immature Granulocytes % (auto) 0.2 %; Lymphocytes # (auto) 1.54 K/uL (1.2-3.4); Lymphocytes % (auto) 37.8 %; Mean Corpuscular Hemoglobin 29.5 pg (25.0-34.0); Mean Corpuscular Hgb Conc 33.4 g/dL (32.0-36.0); Mean Corpuscular Volume 88.3 fL (80.0-100.0); Mean Platelet Volume 10.5 fL (9.4-12.4); Monocytes # (auto) 0.37 K/uL (0.11-0.59); Monocytes % (auto) 9.1 %; Neutrophils % (auto) 49.3 %; Platelet Count 162 K/uL (130-400); RDW Coefficient of Variation 12.3 % (11.5-14.5); RDW Standard Deviation 39.9 fL (36.4-46.3); Red Blood Count 4.78 M/uL (4.70-6.10); White Blood Count 4.07 K/ul (4.8-10.8)
--- NOTE | 2022-10-27 07:05 | Emergency Department Note ---
History of Present Illness General Chief complaint: Mental Health Evaluation Stated complaint: CONTEMPLATING SUICIDE Time Seen by Provider: 10/27/22 06:51 Source: patient Mode of arrival: ambulatory Limitations: no limitations History of Present Illness This patient is a 42-year-old male who has a history of depression, comes in after having suicidal thoughts. He said he almost drank HCl. He denies that he took any overdose he was recently hospitalized with a in the last month for similar symptoms. He says has been take his medications denies taking extra or overdosed denies aspirin or Tylenol drugs or alcohol. He is a student and he is from [employer] [place] he said there is been stressors that his [place] and he is homosexual. Denies any physical complaints or trauma Home Medications Medication Instructions Recorded Confirmed Type omega-3 fatty acids 1 cap PO DAILY 09/15/22 09/15/22 History bupropion HCl 150 mg 24 hr tablet, 150 mg PO QAM 10/27/22 10/27/22 History extended release Allergies Allergy/AdvReac Type Severity Reaction Status Date / Time No Known Allergies Allergy Unverified 09/15/22 21:41 Past Med/Surg History Medical History Major depressive disorder, single episode, severe with anxious distress Vitamin D deficiency Social History Smoking Status: Never smoker Preferred Language: Hungarian Communication Ability: Effective Nutritional Services Director Required: No Beliefs That Will Affect Care: Latter-Day and Spiritual Feels Safe at Home: Yes Gender Identity: Male Assistive Devices: None Review of Systems A total of 10 systems reviewed and were otherwise negative Physical Exam Vital Signs Vital Signs - 24 hr 10/27/22 06:01 Temperature 37 C Temperature Source Oral Pulse Rate 89 Respiratory Rate 16 Blood Pressure 137/88 Blood Pressure Mean 104 Pulse Oximetry 96 Oxygen Delivery Method Room Air Sepsis Recent Fever Within 48 Hours No Sepsis New/Unexplained Change in Mental Status No Sepsis Action Taken by Nursing No Action Required General: Well developed well nourished [id number] young male in no acute distress, breathing comfortably on room air. Normal speech HEENT: Normal cephalic atraumatic. Pupils are equal round and reactive to light. Extraocular movements are intact. Oropharynx is pink with moist mucous membranes. No swelling of the mouth lips or tongue. Neck: Supple with a midline trachea. No meningeal signs or stiffness, no JVD or bruits. No Stridor. Chest: Clear to auscultation bilaterally. No wheezes or rhonchi. No increased work of breathing. Heart: Regular rate and rhythm without murmurs or gallops. Abdomen: Soft nontender, nondistended without rebound guarding or rigidity. Extremities: No cyanosis clubbing or edema. No calf tenderness or assymetry Spine/Back. Non tender to palpation. No CVA tenderness Skin: Good turgor without rashes. Neurologic exam: Cranial nerves two through 12 are intact. Motor and sensation are intact and symmetrical throughout. Psych: Somewhat flattened affect but answers questions appropriately admits to being depressed and having suicidal ideation Course Administered Medications Bupropion HCl (Bupropion Xl 150 Mg Tabcr) 150 mg PO [facility] Stop: 11/26/22 13:44 Last Admin: 10/27/22 14:02 Dose: 150 mg Documented By: TOM Duloxetine HCl (Duloxetine Hcl 20 Mg Cap) 20 mg PO [facility] Stop: 11/26/22 13:44 Last Admin: 10/27/22 14:02 Dose: 20 mg Documented By: TOM Vitamin D (Cholecalciferol 5,000 Units 125 Mcg Tab) 5,000 units PO [facility] Stop: 11/26/22 13:44 Last Admin: 10/27/22 14:02 Dose: 5,000 units Documented By: TOM Medical Decision Making Differential Diagnosis Depression, anxiety, toxicologic, metabolic, infectious Medical Records Attestation: I reviewed the patient's medical records. Home Medications Current Medication List: was personally reviewed by me Laboratory Data Attestation: I reviewed the patient's lab results. 10/27/22 06:32 10/27/22 06:32 Lab Results 10/27/22 10/27/22 10/27/22 Range/Units 06:17 06:17 06:18 WBC (4.8-10.8) K/ul RBC (4.70-6.10) M/uL Hgb (14.0-18.0) g/dl Hct (42.0-52.0) % MCV (80.0-100.0) fL MCH (25.0-34.0) pg MCHC (32.0-36.0) g/dL RDW Std Deviation (36.4-46.3) fL RDW Coeff of Criss (11.5-14.5) % Plt Count (130-400) K/uL MPV (9.4-12.4) fL Immature Gran % (Auto) % Neut % (Auto) % Lymph % (Auto) % [place] % (Auto) % Eos % (Auto) % Baso % (Auto) % Neut # (Auto) (1.40-6.50) K/uL Lymph # (Auto) (1.2-3.4) K/uL [place] # (Auto) (0.11-0.59) K/uL Eos # (Auto) (0-0.50) K/uL Baso # (Auto) (0-0.2) K/uL Immature Gran # (Auto) (0.01-0.20) K/uL Sodium (136-145) mmol/L Potassium (3.5-5.1) mmol/L Chloride (98-107) mmol/L Carbon Dioxide (21-32) mmol/L Anion Gap (3-11) BUN (6-23) mg/dl Creatinine (0.6-1.4) mg/dl Est Cr Clr Drug Dosing ml/min Est GFR ( Amer) ml/min Est GFR (Non-Af Amer) ml/min BUN/Creatinine Ratio (10-20) Glucose (70-99(Fasting)) mg/dl Calcium (8.6-10.3) mg/dl Total Bilirubin (0.2-1.0) mg/dl AST (13-39) U/L ALT (7-52) U/L Alkaline Phosphatase (34-104) U/L Total Protein (6.0-8.3) gm/dl Albumin (3.4-5.0) gm/dl Globulin (2.5-4.0) gm/dl Albumin/Globulin Ratio (0.9-2) TSH (0.300-4.500) uIu/ml Urine Color Yellow Urine Appearance Clear (Clear) Urine pH 6.0 (4.5-7.5) Ur Specific [place] >= 1.030 (1.000-1.030) Urine Protein Trace H (Negative) Urine Glucose (UA) Negative (Negative) Urine Ketones Negative (Negative) Urine Blood Negative (Negative) Urine Nitrite Negative (Negative) Urine Bilirubin 1+ H (Negative) Urine Urobilinogen Negative (Negative) Ur Leukocyte Esterase Negative (Negative) Urine RBC 0-4 (0-4) /hpf Urine WBC 0-5 (0-5) /hpf Ur Epithelial Cells 0-5 (0-5) /lpf Urine Bacteria 1+ H (Negative) Urine Mucus Present A (None Prsent) Salicylates (3.0-30) mg/dl Urine Opiates Screen Neg (Neg) Ur Methadone, Qual Neg (Neg) Acetaminophen (10-30) ug/ml Urine Barbiturates Neg (Neg) Ur Phencyclidine (PCP) Neg (Neg) U Amphetamin/Meth Scrn Neg (Neg) MDMA (Ecstasy) Screen Pos H (Neg) U Benzodiazepines Scrn Neg (Neg) Ur Cocaine Metabolite Neg (Neg) U Marijuana (THC) Screen Neg (Neg) Ethyl Alcohol mg/dL (<10.0) mg/dl SARS-CoV-2, RNA, NAAT NEGATIVE (NEGATIVE) 10/27/22 10/27/22 10/27/22 Range/Units 06:32 06:32 06:32 WBC 4.07 L (4.8-10.8) K/ul RBC 4.78 (4.70-6.10) M/uL Hgb 14.1 (14.0-18.0) g/dl Hct 42.2 (42.0-52.0) % MCV 88.3 (80.0-100.0) fL MCH 29.5 (25.0-34.0) pg MCHC 33.4 (32.0-36.0) g/dL RDW Std Deviation 39.9 (36.4-46.3) fL RDW Coeff of Criss 12.3 (11.5-14.5) % Plt Count 162 (130-400) K/uL MPV 10.5 (9.4-12.4) fL Immature Gran % (Auto) 0.2 % Neut % (Auto) 49.3 % Lymph % (Auto) 37.8 % [place] % (Auto) 9.1 % Eos % (Auto) 3.4 % Baso % (Auto) 0.2 % Neut # (Auto) 2.00 (1.40-6.50) K/uL Lymph # (Auto) 1.54 (1.2-3.4) K/uL [place] # (Auto) 0.37 (0.11-0.59) K/uL Eos # (Auto) 0.14 (0-0.50) K/uL Baso # (Auto) 0.01 (0-0.2) K/uL Immature Gran # (Auto) 0.01 (0.01-0.20) K/uL Sodium 140 (136-145) mmol/L Potassium 3.5 (3.5-5.1) mmol/L Chloride 107 (98-107) mmol/L Carbon Dioxide 26 (21-32) mmol/L Anion Gap 7 (3-11) BUN 10 (6-23) mg/dl Creatinine 0.63 (0.6-1.4) mg/dl Est Cr Clr Drug Dosing 136.2 ml/min Est GFR ( Amer) > 150.0 ml/min Est GFR (Non-Af Amer) 138.9 ml/min BUN/Creatinine Ratio 15.9 (10-20) Glucose 85 (70-99(Fasting)) mg/dl Calcium 9.2 (8.6-10.3) mg/dl Total Bilirubin 1.2 H (0.2-1.0) mg/dl AST 15 (13-39) U/L ALT 10 (7-52) U/L Alkaline Phosphatase 61 (34-104) U/L Total Protein 6.6 (6.0-8.3) gm/dl Albumin 4.4 (3.4-5.0) gm/dl Globulin 2.2 L (2.5-4.0) gm/dl Albumin/Globulin Ratio 2.0 (0.9-2) TSH 3.025 (0.300-4.500) uIu/ml Urine Color Urine Appearance (Clear) Urine pH (4.5-7.5) Ur Specific [place] (1.000-1.030) Urine Protein (Negative) Urine Glucose (UA) (Negative) Urine Ketones (Negative) Urine Blood (Negative) Urine Nitrite (Negative) Urine Bilirubin (Negative) Urine Urobilinogen (Negative) Ur Leukocyte Esterase (Negative) Urine RBC (0-4) /hpf Urine WBC (0-5) /hpf Ur Epithelial Cells (0-5) /lpf Urine Bacteria (Negative) Urine Mucus (None Prsent) Salicylates (3.0-30) mg/dl Urine Opiates Screen (Neg) Ur Methadone, Qual (Neg) Acetaminophen (10-30) ug/ml Urine Barbiturates (Neg) Ur Phencyclidine (PCP) (Neg) U Amphetamin/Meth Scrn (Neg) MDMA (Ecstasy) Screen (Neg) U Benzodiazepines Scrn (Neg) Ur Cocaine Metabolite (Neg) U Marijuana (THC) Screen (Neg) Ethyl Alcohol mg/dL (<10.0) mg/dl SARS-CoV-2, RNA, NAAT (NEGATIVE) 10/27/22 10/27/22 Range/Units 06:32 06:32 WBC (4.8-10.8) K/ul RBC (4.70-6.10) M/uL Hgb (14.0-18.0) g/dl Hct (42.0-52.0) % MCV (80.0-100.0) fL MCH (25.0-34.0) pg MCHC (32.0-36.0) g/dL RDW Std Deviation (36.4-46.3) fL RDW Coeff of Criss (11.5-14.5) % Plt Count (130-400) K/uL MPV (9.4-12.4) fL Immature Gran % (Auto) % Neut % (Auto) % Lymph % (Auto) % [place] % (Auto) % Eos % (Auto) % Baso % (Auto) % Neut # (Auto) (1.40-6.50) K/uL Lymph # (Auto) (1.2-3.4) K/uL [place] # (Auto) (0.11-0.59) K/uL Eos # (Auto) (0-0.50) K/uL Baso # (Auto) (0-0.2) K/uL Immature Gran # (Auto) (0.01-0.20) K/uL Sodium (136-145) mmol/L Potassium (3.5-5.1) mmol/L Chloride (98-107) mmol/L Carbon Dioxide (21-32) mmol/L Anion Gap (3-11) BUN (6-23) mg/dl Creatinine (0.6-1.4) mg/dl Est Cr Clr Drug Dosing ml/min Est GFR ( Amer) ml/min Est GFR (Non-Af Amer) ml/min BUN/Creatinine Ratio (10-20) Glucose (70-99(Fasting)) mg/dl Calcium (8.6-10.3) mg/dl Total Bilirubin (0.2-1.0) mg/dl AST (13-39) U/L ALT (7-52) U/L Alkaline Phosphatase (34-104) U/L Total Protein (6.0-8.3) gm/dl Albumin (3.4-5.0) gm/dl Globulin (2.5-4.0) gm/dl Albumin/Globulin Ratio (0.9-2) TSH (0.300-4.500) uIu/ml Urine Color Urine Appearance (Clear) Urine pH (4.5-7.5) Ur Specific [place] (1.000-1.030) Urine Protein (Negative) Urine Glucose (UA) (Negative) Urine Ketones (Negative) Urine Blood (Negative) Urine Nitrite (Negative) Urine Bilirubin (Negative) Urine Urobilinogen (Negative) Ur Leukocyte Esterase (Negative) Urine RBC (0-4) /hpf Urine WBC (0-5) /hpf Ur Epithelial Cells (0-5) /lpf Urine Bacteria (Negative) Urine Mucus (None Prsent) Salicylates < 3.0 L (3.0-30) mg/dl Urine Opiates Screen (Neg) Ur Methadone, Qual (Neg) Acetaminophen < 3 L (10-30) ug/ml Urine Barbiturates (Neg) Ur Phencyclidine (PCP) (Neg) U Amphetamin/Meth Scrn (Neg) MDMA (Ecstasy) Screen (Neg) U Benzodiazepines Scrn (Neg) Ur Cocaine Metabolite (Neg) U Marijuana (THC) Screen (Neg) Ethyl Alcohol mg/dL < 10.0 (<10.0) mg/dl SARS-CoV-2, RNA, NAAT (NEGATIVE) MDM Narrative This patient comes in as scribed above he is having suicidal ideations he does have history of depression. He was evaluated in room A5 blood work was obtained for medical clearance his COVID testing was negative. His work-up was unremarkable for any organic etiology for his symptoms. Specifically there is nothing to suggest infectious, metabolic or toxicologic process. He was medically cleared and was further evaluated by our psychiatric director of casework. 3 S. has seen him and will be admitting him for further inpatient treatment and evaluation on a voluntary basis. Impression & Plan Depression, Suicidal ideations, Anxiety, Lab test negative for COVID-19 virus Discharge Plan Visit Data Chief Complaint: Mental Health Evaluation Stated Complaint: CONTEMPLATING SUICIDE ED Provider: Mehul Villavicencio Discharge Problem: Depression, Suicidal ideations, Anxiety, Lab test negative for COVID-19 virus Patient Disposition: Admitted As Inpatient Discharge Instructions Interventions: ED Discharge Assessment Last Done: 10/27/22 09:32
[2022-10-27 07:13] LABS: Epithelial Cell Urine 0-5 /lpf (0-5); Mucus Urine Present (None Prsent); RBC Urine 0-4 /hpf (0-4); WBC Urine 0-5 /hpf (0-5)
[2022-10-27 07:14] LABS: Bacteria Urine 1+ (Negative)
[2022-10-27 07:18] LABS: Alanine Aminotransferase 10 U/L (7-52); Albumin Level 4.4 gm/dl (3.4-5.0); Alkaline Phosphatase 61 U/L (34-104); Anion Gap 7 (3-11); Aspartate Aminotransferase 15 U/L (13-39); BUN Creatinine Ratio 15.9 (10-20); Bilirubin,Total 1.2 mg/dl (0.2-1.0); Blood Urea Nitrogen 10 mg/dl (6-23); Calcium 9.2 mg/dl (8.6-10.3); Carbon Dioxide 26 mmol/L (21-32); Chloride 107 mmol/L (98-107); Creatinine Clr Calc Pharmacy 136.2 ml/min; Est GFR (African American) > 150.0 ml/min; Est GFR (Non-African American) 138.9 ml/min; Globulin 2.2 gm/dl (2.5-4.0); Glucose 85 mg/dl (70-99(Fasting)); Potassium 3.5 mmol/L (3.5-5.1); Sodium 140 mmol/L (136-145); Total Protein 6.6 gm/dl (6.0-8.3)
[2022-10-27 07:23] LABS: Acetaminophen < 3 ug/ml (10-30); Salicylate < 3.0 mg/dl (3.0-30)
[2022-10-27 07:32] LABS: Amphetamines+Metham, Urine Neg (Neg); Barbiturates, Urine Neg (Neg); Benzodiazepine, Urine Neg (Neg); Cocaine, Urine Neg (Neg); MDMA (Ecstacy), Urine Pos (Neg); Methadone, Urine Neg (Neg); Opiate, Urine Neg (Neg); Phencyclidine, Urine Neg (Neg)
[2022-10-27] MEDS ORDERED: SODIUM CHLORIDE 0.65% NA SOLN 45 ML (OCEAN) PRN (09:31)
[2022-10-27] MEDS ORDERED: MAGNESIUM HYDROXIDE SUSP 30 ML UDC PO PRN (09:31)
[2022-10-27] MEDS ORDERED: ACETAMINOPHEN 325 MG TAB PO PRN (09:31)
[2022-10-27] MEDS ORDERED: hydrOXYzine HCl 25 MG TAB PO PRN ×2 (09:31)
[2022-10-27] MEDS ORDERED: ALUMINUM/MAGNESIUM SUSP 30 ML UDC PO PRN (09:31)
[2022-10-27] MEDS ORDERED: BISMUTH SUBSALICYLATE LIQD 236 ML PO PRN (09:31)
--- NOTE | 2022-10-27 12:33 | History & Physical ---
Date of Service October 27, 2022 Impression / Recommendations Impression 22 y/o M with a recent history of severe depression, copious anxiety, and obsessive thoughts who formulated a suicide plan of high potential lethality for which he completed preparation. In addition to severe major depression, it seems increasingly clear that he has obsessive-compulsive disorder. He does appear to have benefitted to a degree from low-dose bupropion XL 150 mg daily in terms of ability to complete tasks (but this may have increased his risk of acting on suicidal thoughts). During his previous stay, he and I had spoken about the use of bupropion particularly to address his very poor motivation (which does seem to have improved somewhat) but that he might require an additional approach to target anxiety or obsessive thoughts - we'd reviewed specifically the possibility of future augmentation with duloxetine. 10/27/2022: Revisited the discussion from previous admission regarding medication options, noting that anxiety continues to be a major factor. Increasing bupropion could be more effective for depression but carries a risk of exacerbating anxiety. An SNRI such as duloxetine has a complementary mechanism of antidepressant action and is often used to augment bupropion, and is also effective for a range of anxiety disorders including OCD and DANN. (1) Major depressive disorder, single episode, severe with anxious distress: (2) Vitamin D deficiency: (3) Obsessive compulsive disorder: Obsessive-compulsive disorder type: mixed obsessional thoughts and acts Qualified Code(s): F42.2 - Mixed obsessional thoughts and acts Plan 10/27/2022: The patient was admitted to [facility] ([facility] mental health unit) on q15 min checks (behavioral with suicide precautions) for safety. The patient will participate in group, recreational, and milieu therapies and will be offered additional individual and family sessions as clinically appropriate. * start duloxetine 20 mg daily, anticipate titration to a target of 60 mg daily * continue bupropion XL 150 mg daily * reduce (as planned at previous discharge) cholecalciferol to 5,000 IU daily Inventory Assets Strengths: supportive relationships, has local supports,voluntary, good insight, intelligent employed Needs: safety and stabilization, medication adjustment, additional coping skills Suicide Risk Level Suicide Risk Level: High-Moderate (q15 min suicide checks) Suicide Risk Level Comments: denies suicidal intent in the hospital and readily contracts for safety, but had a plan of high potential lethality for which he'd made all preparations and on which he was on the verge of acting Risk Factors Assessment Male: Yes : No Do You Have Access To A Gun?: No Health Problems: No Mental Health Diagnoses: Yes Substance Use Disorders: No Previous Attempt: No Family History of Suicide: No Previous Psychiatric Hospitalization: Yes Hopelessness: Yes Protective Factors Assessment Gnosticist Beliefs: Yes (strongly Hoahaoism) : No Responsible for Young Children: No Employed: No Stable Relationships: Yes (though few) Supportive Family: Yes Good Rapport with Provider: Yes Psychiatric History Identifying Data GEETA HARPER is a 22-year-old M who currently lives in an apartment in [place] with a roommate, has a history of major depression, and was admitted on 10/27/22 08:15 on a 201 voluntary commitment for suicidal ideation with a plan towards which he'd made concrete preparations. Chief Complaint "I just think my life might be over". History of Present Illness As part of my review of the medical record, I read the following note by the ED psychiatric rn field case manager: "Geeta stated he was "one or two seconds away for committing suicide." He stated he is diagnosed with MDD and was recently inpatient on 3S. He is a "a mai man from [facility] and parliament almost has a bill passed banning homosexuality. It is close to passing and would make homosexuality punishable with 20 years retirement time." Geeta stated he was feeling very sad and hopeless. 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 He stated he obtained 1L of highly concentrated hydrochloric acid and had intent to drink it prior to coming to the ED. Geeta stated he gave the bottle of hydrochloric acid to nurse. Just stated "it was the closest I've ever been to suicide." He denies prior suicide attempts. He denies HI or aggression. He denies SIB. He denies medical issues. He denies alcohol or substance use. He denies trauma history. He denies hallucinations, paranoia, or delusional thinking. He denies legal issues. He stated he is prescribed medications and takes meds as prescribed. He denies trauma/abuse history. 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 He evidenced substantial improvement during that stay, which was certainly attributable to the milieu rather than to his having started bupropion. Pt says he has remained on medication and kept follow-up appointments as well as continuing to participate in the choir at his [employer] and starting in traditional dance classes and other activities as had been planned at that visit. He also addressed the "academic shortcomings" (assignments and research on which he'd gotten behind). Nevertheless, after a week or so during which he "felt pretty good", his mood began to decline again. A major factor has been recent [place] politics, especially criminalization of homosexuality. Pt has recently begun to realize that he's attracted to men, which had been a factor in his previous admission given his devout catholicism and [place] cultural factors. Since the recent legislative actions in [facility] regarding long intermediate sentences for homosexuality he began to ruminate on the possibility that he "could spend 20 years in intermediate" if he were to return to his home. 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 He figured that was likely the most toxic substance to which he had access so obtained 1 L of concentrated HCl (where "concentrated" refers to near-maximal aqueous concentration of about 38%, and is synonymous with the older term "fuming hydrochloric acid" because of visible hydrogen chloride gas evaporation) which is highly-corrosive and of which 1 L would be much greater than a fatal amount if it were possible to ingest it at one time. 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 He realized, after sitting in his office with the bottle of acid, that "it would be ridiculous" so came to the ED. Pt reports depressed mood, anhedonia, and ruminations about punishment (judicial and divine) for homosexuality but denies changes in sleep or appetite (which have been "OK", energy or interest (which have remained low), or ability to focus or concentrate. He "can't be sure" about libido changes. He denies any hallucinations and I can't elicit any evidence of delusions or unfounded persecutory beliefs (homosexuals in [facility] are certainly being persecuted openly). Despite his intrusive suicidal thoughts he says he's "not sure" that he wants to be and doesn't want to hurt those about whom he cares. During his last stay I'd noted an obsessive, or at least highly ruminative, quality to much of his thinking and had entertained the possibility that He might have obsessive-compulsive disorder. Past Psychiatric History Current Psychiatric Diagnosis: major depression Outpatient Services: sees therapist and psychiatric prescriber Previous Psych Admissions: on this unit from 16 September to 20 September 2022 Do You Have Access To A Gun?: No History of Previous Suicide Attempt: No Describe Attempts in the Past: none Past Medication Trials: bupropion XL 150 mg daily - no other trials Allergies Allergy/AdvReac Type Severity Reaction Status Date / Time No Known Allergies Allergy Unverified 09/15/22 21:41 Home Medications Medication Instructions Recorded Confirmed Type omega-3 fatty acids 1 cap PO DAILY 09/15/22 09/15/22 History Family History Family History of: Doesn't Know Family Mental Health History Comment: mother experienced depression, not diagnosed brother- depression, not diagnosed but had to drop out of college- did not have access to resources Alcohol History Hx of Alcohol Use Over the Past 12 Months: No AUDIT Total Score: 0 Smoking Use Have You Smoked or Used Tobacco Products in the Last 30 Days: No Smoking Status: Never smoker Substance History Hx of Prescription Med Misuse Over the Past 12 Months: No Hx of Over the Counter Med Misuse Over the Past 12 Months: No Hx of Inhalent Misuse Over the Past 12 Months: No Hx of Organic Substance Use Over the Past 12 Months: No Hx of Illegal Substances/Street Drug Use Over Past 12 Months: No Problems as a Result of Past Substance Use: None Identified Personal History Living Arrangements: Apartment Born In: [facility] Highest Grade Completed: College Highest Grade Completed Comment: 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 [employer] Marital Status: Single Beliefs That Will Affect Care: Gnosticist and Spiritual Patient History Medical History Major depressive disorder, single episode, severe with anxious distress Vitamin D deficiency Social History Smoking Status: Never smoker Preferred Language: Latvian Communication Ability: Effective Wood Ski Maker Required: No Beliefs That Will Affect Care: Gnosticist and Spiritual Feels Safe at Home: Yes Gender Identity: Male Assistive Devices: None Review of Systems Psychiatric: + depression, + hopelessness, + anhedonia, + change in sex drive (chronically low), + suicidal ideation and + anxiety; no abnormal sleep pattern, no change in appetite, no paranoia, no hallucinations and no substance abuse Physical Exam Psychiatric: Orientation: alert, oriented to person, oriented to place, oriented to time and cooperative Apperance: appeared stated age lies curled up in bed with blanket over his head Eye Contact: + poor eye contact Motor Behavior: + psychomotor retardation slow, quiet, brief, with intermittent stammering Affect: + depressed affect Mood: + depressed mood and + anxious mood Thought Process: linear/logical thought process and clear/coherent thought pr ocess Thought Content: + preoccupation (vs. obsessions), + obsessions (possible), + cognitive distortions, + hopelessness, + loneliness, + guilt and + self deprecation; no compulsions and no delusions Suicidal Thoughts: denies suicidal thoughts (now - "feeling safe here"), denies suicidal plan (now - had concrete plan of high potential lethality prior to admission) and denies suicidal intent (now - but clear intent prior to admission) Homicidal Thoughts: denies homicidal thoughts Hallucinations: no auditory hallucinations and no visual hallucinations Cognition: recent memory grossly intact, remote memory grossly intact, attention grossly intact and language grossly intact Estimated Intelligence: + above average estimated intelligence Insight: + fair insight Judgment: + fair judgement Vital Signs (Past 24 Hours): Last Vital Signs Temp 37.1 C 10/27/22 09:33 Pulse 78 10/27/22 09:33 Resp 16 10/27/22 09:33 BP 118/73 10/27/22 09:33 Pulse Ox 100 10/27/22 09:33 O2 Del Method Room Air 10/27/22 09:33 Exam Statement: A physical exam was performed in the ED for the purposes of medical clearance. I accept that physical as correct and adequate for the purposes of the inpatient physical exam. Results & Data ([facility]) Laboratory Results Laboratory Results - last 24 hr 10/27/22 10/27/22 10/27/22 06:17 06:17 06:17 WBC RBC Hgb Hct MCV MCH MCHC RDW Std Deviation RDW Coeff of Criss Plt Count MPV Immature Gran % (Auto) Neut % (Auto) Lymph % (Auto) [place] % (Auto) Eos % (Auto) Baso % (Auto) Neut # (Auto) Lymph # (Auto) [place] # (Auto) Eos # (Auto) Baso # (Auto) Immature Gran # (Auto) Sodium Potassium Chloride Carbon Dioxide Anion Gap BUN Creatinine Est Cr Clr Drug Dosing Est GFR ( Amer) Est GFR (Non-Af Amer) BUN/Creatinine Ratio Glucose Calcium Total Bilirubin AST ALT Alkaline Phosphatase Total Protein Albumin Globulin Albumin/Globulin Ratio TSH Urine Color Yellow Urine Appearance Clear Urine pH 6.0 Ur Specific [place] >= 1.030 Urine Protein Trace H Urine Glucose (UA) Negative Urine Ketones Negative Urine Blood Negative Urine Nitrite Negative Urine Bilirubin 1+ H Urine Urobilinogen Negative Ur Leukocyte Esterase Negative Urine RBC 0-4 Urine WBC 0-5 Ur Epithelial Cells 0-5 Urine Bacteria 1+ H Urine Mucus Present A Salicylates Urine Opiates Screen Neg Ur Methadone, Qual Neg Acetaminophen Urine Barbiturates Neg Ur Phencyclidine (PCP) Neg U Amphetamin/Meth Scrn Neg Urine MDEA Pending MDMA (Ecstasy) Screen Pos H MDMA Pending Urine MDMA Pending U Benzodiazepines Scrn Neg Ur Cocaine Metabolite Neg U Marijuana (THC) Screen Neg Ethyl Alcohol mg/dL SARS-CoV-2, RNA, NAAT 10/27/22 10/27/22 10/27/22 06:18 06:32 06:32 WBC 4.07 L RBC 4.78 Hgb 14.1 Hct 42.2 MCV 88.3 MCH 29.5 MCHC 33.4 RDW Std Deviation 39.9 RDW Coeff of Criss 12.3 Plt Count 162 MPV 10.5 Immature Gran % (Auto) 0.2 Neut % (Auto) 49.3 Lymph % (Auto) 37.8 [place] % (Auto) 9.1 Eos % (Auto) 3.4 Baso % (Auto) 0.2 Neut # (Auto) 2.00 Lymph # (Auto) 1.54 [place] # (Auto) 0.37 Eos # (Auto) 0.14 Baso # (Auto) 0.01 Immature Gran # (Auto) 0.01 Sodium 140 Potassium 3.5 Chloride 107 Carbon Dioxide 26 Anion Gap 7 BUN 10 Creatinine 0.63 Est Cr Clr Drug Dosing 136.2 Est GFR ( Amer) > 150.0 Est GFR (Non-Af Amer) 138.9 BUN/Creatinine Ratio 15.9 Glucose 85 Calcium 9.2 Total Bilirubin 1.2 H AST 15 ALT 10 Alkaline Phosphatase 61 Total Protein 6.6 Albumin 4.4 Globulin 2.2 L Albumin/Globulin Ratio 2.0 TSH Urine Color Urine Appearance Urine pH Ur Specific [place] Urine Protein Urine Glucose (UA) Urine Ketones Urine Blood Urine Nitrite Urine Bilirubin Urine Urobilinogen Ur Leukocyte Esterase Urine RBC Urine WBC Ur Epithelial Cells Urine Bacteria Urine Mucus Salicylates Urine Opiates Screen Ur Methadone, Qual Acetaminophen Urine Barbiturates Ur Phencyclidine (PCP) U Amphetamin/Meth Scrn Urine MDEA MDMA (Ecstasy) Screen MDMA Urine MDMA U Benzodiazepines Scrn Ur Cocaine Metabolite U Marijuana (THC) Screen Ethyl Alcohol mg/dL SARS-CoV-2, RNA, NAAT NEGATIVE 10/27/22 10/27/22 10/27/22 06:32 06:32 06:32 WBC RBC Hgb Hct MCV MCH MCHC RDW Std Deviation RDW Coeff of Criss Plt Count MPV Immature Gran % (Auto) Neut % (Auto) Lymph % (Auto) [place] % (Auto) Eos % (Auto) Baso % (Auto) Neut # (Auto) Lymph # (Auto) [place] # (Auto) Eos # (Auto) Baso # (Auto) Immature Gran # (Auto) Sodium Potassium Chloride Carbon Dioxide Anion Gap BUN Creatinine Est Cr Clr Drug Dosing Est GFR ( Amer) Est GFR (Non-Af Amer) BUN/Creatinine Ratio Glucose Calcium Total Bilirubin AST ALT Alkaline Phosphatase Total Protein Albumin Globulin Albumin/Globulin Ratio TSH 3.025 Urine Color Urine Appearance Urine pH Ur Specific [place] Urine Protein Urine Glucose (UA) Urine Ketones Urine Blood Urine Nitrite Urine Bilirubin Urine Urobilinogen Ur Leukocyte Esterase Urine RBC Urine WBC Ur Epithelial Cells Urine Bacteria Urine Mucus Salicylates < 3.0 L Urine Opiates Screen Ur Methadone, Qual Acetaminophen < 3 L Urine Barbiturates Ur Phencyclidine (PCP) U Amphetamin/Meth Scrn Urine MDEA MDMA (Ecstasy) Screen MDMA Urine MDMA U Benzodiazepines Scrn Ur Cocaine Metabolite U Marijuana (THC) Screen Ethyl Alcohol mg/dL < 10.0 SARS-CoV-2, RNA, NAAT Current Inpatient Medications Current Inpatient Medications: Current Inpatient Medications Acetaminophen (Acetaminophen 325 Mg Tab) 650 mg PO Q4H PRN PRN Reason: Headache or Minor Fever Stop: 11/26/22 09:30 Al Hydrox/Mg Hydrox/Simethicone (Aluminum/Magnesium Susp 30 Ml Udc) 30 ml PO Q4H PRN PRN Reason: GI Upset Stop: 11/26/22 09:30 Bismuth Subsalicylate (Bismuth Subsalicylate Liqd 236 Ml) 15 ml PO PRN PRN PRN Reason: Loose Stool Stop: 11/26/22 09:30 Hydroxyzine HCl (Hydroxyzine Hcl 25 Mg Tab) 50 mg PO HSZ PRN PRN Reason: Insomnia Stop: 11/26/22 09:30 Hydroxyzine HCl (Hydroxyzine Hcl 25 Mg Tab) 25 mg PO Q4H PRN PRN Reason: Anxiety Stop: 11/26/22 09:30 Magnesium Hydroxide (Magnesium Hydroxide Susp 30 Ml Udc) 30 ml PO DAILY PRN PRN Reason: Constipation Stop: 11/26/22 09:30 Sodium Chloride (Sodium Chloride 0.65% Na Soln 45 Ml ([place])) 1 - 2 sprays NA PRN PRN PRN Reason: Nasal Dryness/Congestion Stop: 11/26/22 09:30
[2022-10-27] MEDS: CHOLECALCIFEROL 5,000 UNITS 125 MCG TAB PO SCH (14:02)
[2022-10-27] MEDS: buPROPion XL 150 MG TABCR PO SCH (14:02)
[2022-10-27] MEDS: DULoxetine HCL 20 MG CAP PO SCH (14:02)
[2022-10-28] MEDS: DULoxetine HCL 20 MG CAP PO SCH (08:30)
[2022-10-28] MEDS: buPROPion XL 150 MG TABCR PO SCH (08:30)
[2022-10-28] MEDS: CHOLECALCIFEROL 5,000 UNITS 125 MCG TAB PO SCH (08:30)
--- NOTE | 2022-10-28 12:32 | Psychiatric Progress Note ---
Date of Service October 28, 2022 Impression / Recommendations Impression 22 y/o M with a recent history of severe depression, copious anxiety, and obsessive thoughts who formulated a suicide plan of high potential lethality for which he completed preparation. In addition to severe major depression, it seems increasingly clear that he has obsessive-compulsive disorder. He does appear to have benefitted to a degree from low-dose bupropion XL 150 mg daily in terms of ability to complete tasks (but this may have increased his risk of acting on suicidal thoughts). During his previous stay, he and I had spoken about the use of bupropion particularly to address his very poor motivation (which does seem to have improved somewhat) but that he might require an additional approach to target anxiety or obsessive thoughts - we'd reviewed specifically the possibility of future augmentation with duloxetine. : Reviewed pt's suicidal plans prior to admission. He'd also researched the heights of publicly-accessible buildings in [place] (thinking that in cities such as [place] or [facility] it'd be harder to gain access to tall buildings) since he didn't think any structures here were tall enough to ensure mortality if he jumped from one. Discussed his familiarity with concentrated HCl, and confirmed that it was "fuming". 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 He was fully-aware that it would cause severe, excruciatingly painful chemical kidd and most likely end up inhaled due to choking and lead to fatal pulmonary edema. When I summarized this as "an agonizing, tortured " he replied "that was my intention". He was sitting in his office with the liter of acid in a boiling flask and noted the acridity as he raised it to his mouth and found himself considering means of protecting his mouth while drinking it ("maybe drinking through a piece of cloth") and concluded that this meant he was, after all, sufficiently ambivalent about suicide to warrant going to the ED. He did this clutching the bottle of acid, which he handed to a nurse. (We have confirmed that it was properly disposed of yesterday.) Pt discussed that he has dutifully followed every recommendation made at his discharge except he's been exercising slightly less than we'd discussed (for which he berates himself). He thought psychotherapy was "helpful" and thought he "was doing pretty well" for the first 3 weeks following discharge until the [place] parliament passed a new law making being homosexual punishable by 20 years' imprisonment or - not merely homosexual behavior. 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 He has tolerated duloxetine 20 mg x2 doses with no adverse effect so, if he notes no problems over the course of today, would like to increase the dose tomorrow. 10/27/2022: Revisited the discussion from previous admission regarding medication options, noting that anxiety continues to be a major factor. Increasing bupropion could be more effective for depression but carries a risk of exacerbating anxiety. An SNRI such as duloxetine has a complementary mechanism of antidepressant action and is often used to augment bupropion, and is also effective for a range of anxiety disorders including OCD and DANN. (1) Major depressive disorder, single episode, severe with anxious distress: Present on Admission?: Yes (2) Vitamin D deficiency: Present on Admission?: Yes (3) Obsessive compulsive disorder: Plan 10/27/2022: * increase duloxetine to 40 mg daily, anticipate titration to a target of 60 mg daily * continue bupropion XL 150 mg daily * continue cholecalciferol to 5,000 IU daily 10/27/2022: The patient was admitted to the [facility] ([facility] unit) on q15 min checks (behavioral with suicide precautions) for safety. The patient will participate in group, recreational, and milieu therapies and will be offered additional individual and family sessions as clinically appropriate. * start duloxetine 20 mg daily, anticipate titration to a target of 60 mg daily * continue bupropion XL 150 mg daily * reduce (as planned at previous discharge) cholecalciferol to 5,000 IU daily Inventory Assets Strengths: supportive relationships, has local supports,voluntary, good insight, intelligent employed Needs: safety and stabilization, medication adjustment, additional coping skills Suicide Risk Level Suicide Risk Level: High-Moderate (q15 min suicide checks) Suicide Risk Level Comments: denies suicidal intent in the hospital and readily contracts for safety, but had multiple plans of high potential lethality for one of which he'd made all preparations and on which he was on the verge of acting Risk Factors Assessment Male: Yes : No Do You Have Access To A Gun?: No Health Problems: No Mental Health Diagnoses: Yes Substance Use Disorders: No Previous Attempt: No Family History of Suicide: No Previous Psychiatric Hospitalization: Yes Hopelessness: Yes Protective Factors Assessment Buddhism Beliefs: Yes (strongly Cheondoism) : No Responsible for Young Children: No Employed: No Stable Relationships: Yes (though few) Supportive Family: Yes Good Rapport with Provider: Yes Interval History Identifying Information GEETA HARPER is a 22-year-old M who currently lives in an apartment in [place] with a roommate, has a history of major depression, and was admitted on 10/27/22 08:15 on a 201 voluntary commitment for suicidal ideation with a plan towards which he'd made concrete preparations. 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 Review of Systems Sleep Information Total Hours of Sleep: 8.5 Meal Information Percent Meal Consumed - Breakfast: 100 Percent Meal Consumed - Lunch: 100 Percent Meal Consumed - Dinner: 100 Nutrition Comment: Pt ate meal after he woke up in the afternoon. Subjective Subjective Patient was seen & assessed and interval progress reviewed with treatment team Physical Exam Psychiatric Orientation: alert, oriented to person, oriented to place, oriented to time and cooperative Apperance: appeared stated age Eye Contact: + poor eye contact Motor Behavior: + psychomotor retardation Affect: + depressed affect Mood: + depressed mood and + anxious mood Thought Process: linear/logical thought process and clear/coherent thought process Thought Content: + obsessions, + cognitive distortions, + hopelessness, + loneliness, + guilt and + self deprecation; no compulsions and no delusions Suicidal Thoughts: denies suicidal thoughts (now - "feeling safe here"), denies suicidal plan (now - had concrete plan of high potential lethality prior to admission) and denies suicidal intent (now - but clear intent prior to admission) Homicidal Thoughts: denies homicidal thoughts Hallucinations: no auditory hallucinations and no visual hallucinations Cognition: recent memory grossly intact, remote memory grossly intact, attention grossly intact and language grossly intact Estimated Intelligence: + above average estimated intelligence Insight: + fair insight Judgment: + fair judgement Vital Signs (Past 24 Hours) Last Vital Signs Temp 36.6 C 10/28/22 06:30 Pulse 87 10/28/22 06:31 Resp 16 10/28/22 06:30 BP 110/65 10/28/22 06:31 Pulse Ox 100 10/27/22 09:33 O2 Del Method Room Air 10/27/22 09:33 Results & Data ([facility]) Current Inpatient Medications Current Inpatient Medications: Current Inpatient Medications Acetaminophen (Acetaminophen 325 Mg Tab) 650 mg PO Q4H PRN PRN Reason: Headache or Minor Fever Stop: 11/26/22 09:30 Al Hydrox/Mg Hydrox/Simethicone (Aluminum/Magnesium Susp 30 Ml Udc) 30 ml PO Q4H PRN PRN Reason: GI Upset Stop: 11/26/22 09:30 Bismuth Subsalicylate (Bismuth Subsalicylate Liqd 236 Ml) 15 ml PO PRN PRN PRN Reason: Loose Stool Stop: 11/26/22 09:30 Bupropion HCl (Bupropion Xl 150 Mg Tabcr) 150 mg PO QAM [facility] Stop: 11/26/22 13:44 Last Admin: 10/28/22 08:30 Dose: 150 mg Duloxetine HCl (Duloxetine Hcl 20 Mg Cap) 20 mg PO QAM [facility] Stop: 11/26/22 13:44 Last Admin: 10/28/22 08:30 Dose: 20 mg Hydroxyzine HCl (Hydroxyzine Hcl 25 Mg Tab) 50 mg PO HSZ PRN PRN Reason: Insomnia Stop: 11/26/22 09:30 Hydroxyzine HCl (Hydroxyzine Hcl 25 Mg Tab) 25 mg PO Q4H PRN PRN Reason: Anxiety Stop: 11/26/22 09:30 Magnesium Hydroxide (Magnesium Hydroxide Susp 30 Ml Udc) 30 ml PO DAILY PRN PRN Reason: Constipation Stop: 11/26/22 09:30 Sodium Chloride (Sodium Chloride 0.65% Na Soln 45 Ml ([place])) 1 - 2 sprays NA PRN PRN PRN Reason: Nasal Dryness/Congestion Stop: 11/26/22 09:30 Vitamin D (Cholecalciferol 5,000 Units 125 Mcg Tab) 5,000 units PO QAM [facility] Stop: 11/26/22 13:44 Last Admin: 10/28/22 08:30 Dose: 5,000 units Mental Health & Subst Abuse Tx Psychiatrist Name of Psychiatrist: Sonya Schultz Psychiatrist's Psychiatric Appointment Comment: [address] [place] [address] Therapist Name of Therapist: Patricia Noble Therapist's Date of Therapist Appointment: 11/10/2022 Time of Therapist Appointment: 7pm Therapy Appointment Comment: [address], [address], [place] [address] Explosion Welder Name of Explosion Welder: [employer] [facility] Phone Number for Explosion Welder: [phone] Case Management Appointment Comment: Zoom Link will be sent to [facility] email Post Discharge Appointments Primary Care Physician Name Of Family Doctor/PCP: [facility] Time of Appointment with PCP: please follow up as needed Provider Appointment Comment: [facility] Contact Information Discharge Discharge Address: [address], [address], [place], [address] (3) Obsessive compulsive disorder Obsessive-compulsive disorder type: mixed obsessional thoughts and acts Qualified Code(s): F42.2 - Mixed obsessional thoughts and acts
[2022-10-29] MEDS: CHOLECALCIFEROL 5,000 UNITS 125 MCG TAB PO SCH (09:14)
[2022-10-29] MEDS: buPROPion XL 150 MG TABCR PO SCH (09:14)
[2022-10-29] MEDS: DULoxetine HCL 20 MG CAP PO SCH (09:14)
--- NOTE | 2022-10-29 11:18 | Psychiatric Progress Note ---
Date of Service October 29, 2022 Impression / Recommendations Impression 22 y/o M with a recent history of severe depression, copious anxiety, and obsessive thoughts who formulated a suicide plan of high potential lethality for which he completed preparation. In addition to severe major depression, it seems increasingly clear that he has obsessive-compulsive disorder. He does appear to have benefitted to a degree from low-dose bupropion XL 150 mg daily in terms of ability to complete tasks (but this may have increased his risk of acting on suicidal thoughts). During his previous stay, he and I had spoken about the use of bupropion particularly to address his very poor motivation (which does seem to have improved somewhat) but that he might require an additional approach to target anxiety or obsessive thoughts - we'd reviewed specifically the possibility of future augmentation with duloxetine. 10/29/2022: As had been noted during pt's previous admission, his affect has brightened to a degree and with a rapidity that seems incongruous with the severity of his depression at admission. Spoke more about his thoughts about an academic leave of absence. He thinks he "probably should take about 6 months". I think that's probably appropriate, but told him that any academic leave should start with intensive outpatient treatment such as PHP. He's considering going to stay with his aunt and uncle in [facility] so there should be multiple resources in that area. Reports he'd been highly apprehensive about a phone call with his mother today. In fact "it went very well" and she was very supportive and reassuring. Duloxetine was increased to 40 mg this morning. Thus far notes not adverse effects. : Reviewed pt's suicidal plans prior to admission. He'd also researched the heights of publicly-accessible buildings in [place] (thinking that in cities such as [place] or [facility] it'd be harder to gain access to tall buildings) since he didn't think any structures here were tall enough to ensure mortality if he jumped from one. Discussed his familiarity with concentrated HCl, and confirmed that it was "fuming". 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 He was fully-aware that it would cause severe, excruciatingly painful chemical kidd and most likely end up inhaled due to choking and lead to fatal pulmonary edema. When I summarized this as "an agonizing, tortured " he replied "that was my intention". He was sitting in his office with the liter of acid in a boiling flask and noted the acridity as he raised it to his mouth and found himself considering means of protecting his mouth while drinking it ("maybe drinking through a piece of cloth") and concluded that this meant he was, after all, sufficiently ambivalent about suicide to warrant going to the ED. He did this clutching the bottle of acid, which he handed to a nurse. (We have confirmed that it was properly disposed of yesterday.) Pt discussed that he has dutifully followed every recommendation made at his discharge except he's been exercising slightly less than we'd discussed (for which he berates himself). He thought psychotherapy was "helpful" and thought he "was doing pretty well" for the first 3 weeks following discharge until the [facility] parliament passed a new law making being homosexual punishable by 20 years' imprisonment or - not merely homosexual behavior. 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 He has tolerated duloxetine 20 mg x2 doses with no adverse effect so, if he notes no problems over the course of today, would like to increase the dose tomorrow. 10/27/2022: Revisited the discussion from previous admission regarding medication options, noting that anxiety continues to be a major factor. Increasing bupropion could be more effective for depression but carries a risk of exacerbating anxiety. An SNRI such as duloxetine has a complementary mechanism of antidepressant action and is often used to augment bupropion, and is also effective for a range of anxiety disorders including OCD and DANN. (1) Major depressive disorder, single episode, severe with anxious distress: (2) Vitamin D deficiency: (3) Obsessive compulsive disorder: Plan 10/29/2022: * continue duloxetine 40 mg daily, anticipate titration to a target of 60 mg daily * continue bupropion XL 150 mg daily * continue cholecalciferol to 5,000 IU daily 10/28/2022: * increase duloxetine to 40 mg daily, anticipate titration to a target of 60 mg daily * continue bupropion XL 150 mg daily * continue cholecalciferol to 5,000 IU daily 10/27/2022: The patient was admitted to the [facility] ([facility] health unit) on q15 min checks (behavioral with suicide precautions) for safety. The patient will participate in group, recreational, and milieu therapies and will be offered additional individual and family sessions as clinically appropriate. * start duloxetine 20 mg daily, anticipate titration to a target of 60 mg daily * continue bupropion XL 150 mg daily * reduce (as planned at previous discharge) cholecalciferol to 5,000 IU daily Inventory Assets Strengths: supportive relationships, has local supports,voluntary, good insight, intelligent employed Needs: safety and stabilization, medication adjustment, additional coping skills Suicide Risk Level Suicide Risk Level: High-Moderate (q15 min suicide checks) Suicide Risk Level Comments: denies suicidal intent in the hospital and readily contracts for safety, but had multiple plans of high potential lethality for one of which he'd made all preparations and on which he was on the verge of acting Risk Factors Assessment Male: Yes : No Do You Have Access To A Gun?: No Health Problems: No Mental Health Diagnoses: Yes Substance Use Disorders: No Previous Attempt: No Family History of Suicide: No Previous Psychiatric Hospitalization: Yes Hopelessness: Yes Protective Factors Assessment Yarsanism Beliefs: Yes (strongly Advent) : No Responsible for Young Children: No Employed: No Stable Relationships: Yes (though few) Supportive Family: Yes Good Rapport with Provider: Yes Interval History Identifying Information GEETA HARPER is a 22-year-old M who currently lives in an apartment in [place] with a roommate, has a history of major depression, and was admitted on 10/27/22 08:15 on a 201 voluntary commitment for suicidal ideation with a plan towards which he'd made concrete preparations. Chief Complaint "A little better, I think". Review of Systems Sleep Information Total Hours of Sleep: 7 Meal Information Percent Meal Consumed - Breakfast: 100 Percent Meal Consumed - Lunch: 100 Percent Meal Consumed - Dinner: 100 Nutrition Comment: Pt ate meal after he woke up in the afternoon. Subjective Subjective Patient was seen & assessed and interval progress reviewed with treatment team Physical Exam Psychiatric Orientation: alert, oriented to person, oriented to place, oriented to time and cooperative Apperance: appeared stated age Eye Contact: + fair eye contact Motor Behavior: + psychomotor retardation Speech: normal rate/rhythm/volume of speech Affect: + constricted affect Mood: + depressed mood and + anxious mood Thought Process: linear/logical thought process and clear/coherent thought process Thought Content: + obsessions, + cognitive distortions, + loneliness, + guilt and + self deprecation; no compulsions, no delusions and no hopelessness Suicidal Thoughts: denies suicidal thoughts (now - "feeling safe here"), denies suicidal plan (now - had concrete plan of high potential lethality prior to admission) and denies suicidal intent (now - but clear intent prior to admission) Homicidal Thoughts: denies homicidal thoughts Hallucinations: no auditory hallucinations and no visual hallucinations Cognition: recent memory grossly intact, remote memory grossly intact, attention grossly intact and language grossly intact Estimated Intelligence: + above average estimated intelligence Insight: + fair insight Judgment: + fair judgement Vital Signs (Past 24 Hours) Last Vital Signs Temp 36.6 C 10/29/22 06:33 Pulse 85 10/29/22 06:34 Resp 16 10/29/22 06:33 BP 115/75 10/29/22 06:34 Pulse Ox 100 10/27/22 09:33 O2 Del Method Room Air 10/27/22 09:33 Results & Data ([facility]) Current Inpatient Medications Current Inpatient Medications: Current Inpatient Medications Acetaminophen (Acetaminophen 325 Mg Tab) 650 mg PO Q4H PRN PRN Reason: Headache or Minor Fever Stop: 11/26/22 09:30 Al Hydrox/Mg Hydrox/Simethicone (Aluminum/Magnesium Susp 30 Ml Udc) 30 ml PO Q4H PRN PRN Reason: GI Upset Stop: 11/26/22 09:30 Bismuth Subsalicylate (Bismuth Subsalicylate Liqd 236 Ml) 15 ml PO PRN PRN PRN Reason: Loose Stool Stop: 11/26/22 09:30 Bupropion HCl (Bupropion Xl 150 Mg Tabcr) 150 mg PO QAM [facility] Stop: 11/26/22 13:44 Last Admin: 10/29/22 09:14 Dose: 150 mg Duloxetine HCl (Duloxetine Hcl 20 Mg Cap) 20 mg PO QAM [facility] Stop: 11/26/22 13:44 Last Admin: 10/29/22 09:14 Dose: 20 mg Hydroxyzine HCl (Hydroxyzine Hcl 25 Mg Tab) 50 mg PO HSZ PRN PRN Reason: Insomnia Stop: 11/26/22 09:30 Hydroxyzine HCl (Hydroxyzine Hcl 25 Mg Tab) 25 mg PO Q4H PRN PRN Reason: Anxiety Stop: 11/26/22 09:30 Magnesium Hydroxide (Magnesium Hydroxide Susp 30 Ml Udc) 30 ml PO DAILY PRN PRN Reason: Constipation Stop: 11/26/22 09:30 Sodium Chloride (Sodium Chloride 0.65% Na Soln 45 Ml ([place])) 1 - 2 sprays NA PRN PRN PRN Reason: Nasal Dryness/Congestion Stop: 11/26/22 09:30 Vitamin D (Cholecalciferol 5,000 Units 125 Mcg Tab) 5,000 units PO QAM [facility] Stop: 11/26/22 13:44 Last Admin: 10/29/22 09:14 Dose: 5,000 units Mental Health & Subst Abuse Tx Psychiatrist Name of Psychiatrist: Sonya Schultz Psychiatrist's Psychiatric Appointment Comment: [address] [place] [address] Therapist Name of Therapist: Patricia Noble Therapist's Date of Therapist Appointment: 11/10/2022 Time of Therapist Appointment: 7pm Therapy Appointment Comment: [address], [address], [place] [address] Divorce Mediator Name of Divorce Mediator: [employer] [facility] Phone Number for Divorce Mediator: [phone] Case Management Appointment Comment: Zoom Link will be sent to [facility] email Post Discharge Appointments Primary Care Physician Name Of Family Doctor/PCP: [facility] Primary Care Time of Appointment with PCP: please follow up as needed Provider Appointment Comment: [facility] Contact Information Discharge Discharge Address: [facility] [address], [place], [address] (3) Obsessive compulsive disorder Obsessive-compulsive disorder type: mixed obsessional thoughts and acts Qualified Code(s): F42.2 - Mixed obsessional thoughts and acts
[2022-10-29] MEDS ORDERED: DULoxetine HCL 20 MG CAP PO ONE (15:10)
--- NOTE | 2022-10-30 08:41 | Psychiatric Progress Note ---
Date of Service October 30, 2022 Impression / Recommendations Impression 22 y/o M with a recent history of severe depression, copious anxiety, and obsessive thoughts who formulated a suicide plan of high potential lethality for which he completed preparation. In addition to severe major depression, it seems increasingly clear that he has obsessive-compulsive disorder. He does appear to have benefitted to a degree from low-dose bupropion XL 150 mg daily in terms of ability to complete tasks (but this may have increased his risk of acting on suicidal thoughts). During his previous stay, he and I had spoken about the use of bupropion particularly to address his very poor motivation (which does seem to have improved somewhat) but that he might require an additional approach to target anxiety or obsessive thoughts - we'd reviewed specifically the possibility of future augmentation with duloxetine. 10/30/2022: Pt greets me nearly cheerfully this morning, asks me how I'm doing. His affect remains incongruously euthymic. He looks forward to a planned meeting later today to discuss an academic leave of absence. His aunt is planning to drive from [place] tomorrow and, absent any new or worse problems in the interim, return there with pt. Has tolerated increase of duloxetine to 40 mg x2 doses. 10/29/2022: As had been noted during pt's previous admission, his affect has brightened to a degree and with a rapidity that seems incongruous with the severity of his depression at admission. Spoke more about his thoughts about an academic leave of absence. He thinks he "probably should take about 6 months". I think that's probably appropriate, but told him that any academic leave should start with intensive outpatient treatment such as [facility]. He's considering going to stay with his aunt and uncle in [facility] so there should be multiple resources in that area. Reports he'd been highly apprehensive about a phone call with his mother today. In fact "it went very well" and she was very supportive and reassuring. Duloxetine was increased to 40 mg this morning. Thus far notes not adverse effects. : Reviewed pt's suicidal plans prior to admission. He'd also researched the heights of publicly-accessible buildings in [place] (thinking that in cities such as [place] or [facility] it'd be harder to gain access to tall buildings) since he didn't think any structures here were tall enough to ensure mortality if he jumped from one. Discussed his familiarity with concentrated HCl, and confirmed that it was "fuming". 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 He was fully-aware that it would cause severe, excruciatingly painful chemical kidd and most likely end up inhaled due to choking and lead to fatal pulmonary edema. When I summarized this as "an agonizing, tortured " he replied "that was my intention". He was sitting in his office with the liter of acid in a boiling flask and noted the acridity as he raised it to his mouth and found himself considering means of protecting his mouth while drinking it ("maybe drinking through a piece of cloth") and concluded that this meant he was, after all, sufficiently ambivalent about suicide to warrant going to the ED. He did this clutching the bottle of acid, which he handed to a nurse. (We have confirmed that it was properly disposed of yesterday.) Pt discussed that he has dutifully followed every recommendation made at his discharge except he's been exercising slightly less than we'd discussed (for which he berates himself). He thought psychotherapy was "helpful" and thought he "was doing pretty well" for the first 3 weeks following discharge until the [place] parliament passed a new law making being homosexual punishable by 20 years' imprisonment or - not merely homosexual behavior. 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 He has tolerated duloxetine 20 mg x2 doses with no adverse effect so, if he notes no problems over the course of today, would like to increase the dose tomorrow. 10/27/2022: Revisited the discussion from previous admission regarding medication options, noting that anxiety continues to be a major factor. Increasing bupropion could be more effective for depression but carries a risk of exacerbating anxiety. An SNRI such as duloxetine has a complementary mechanism of antidepressant action and is often used to augment bupropion, and is also effective for a range of anxiety disorders including OCD and DANN. (1) Major depressive disorder, single episode, severe with anxious distress: (2) Vitamin D deficiency: (3) Obsessive compulsive disorder: Plan 10/29/2022: * increase duloxetine to 60 mg daily * continue bupropion XL 150 mg daily * continue cholecalciferol to 5,000 IU daily 10/29/2022: * continue duloxetine 40 mg daily, anticipate titration to a target of 60 mg daily * continue bupropion XL 150 mg daily * continue cholecalciferol to 5,000 IU daily 10/28/2022: * increase duloxetine to 40 mg daily, anticipate titration to a target of 60 mg daily * continue bupropion XL 150 mg daily * continue cholecalciferol to 5,000 IU daily 10/27/2022: The patient was admitted to the [facility] ([facility]) on q15 min checks (behavioral with suicide precautions) for safety. The patient will participate in group, recreational, and milieu therapies and will be offered additional individual and family sessions as clinically appropriate. * start duloxetine 20 mg daily, anticipate titration to a target of 60 mg daily * continue bupropion XL 150 mg daily * reduce (as planned at previous discharge) cholecalciferol to 5,000 IU daily Inventory Assets Strengths: supportive relationships, has local supports,voluntary, good insight, intelligent employed Needs: safety and stabilization, medication adjustment, additional coping skills Suicide Risk Level Suicide Risk Level: High-Moderate (q15 min suicide checks) Suicide Risk Level Comments: denies suicidal intent in the hospital and readily contracts for safety, but had multiple plans of high potential lethality for one of which he'd made all preparations and on which he was on the verge of acting Risk Factors Assessment Male: Yes : No Do You Have Access To A Gun?: No Health Problems: No Mental Health Diagnoses: Yes Substance Use Disorders: No Previous Attempt: No Family History of Suicide: No Previous Psychiatric Hospitalization: Yes Hopelessness: Yes Protective Factors Assessment Sabianism Beliefs: Yes (strongly Protestant) : No Responsible for Young Children: No Employed: No Stable Relationships: Yes (though few) Supportive Family: Yes Good Rapport with Provider: Yes Interval History Identifying Information GEETA HARPER is a 22-year-old M who currently lives in an apartment in [place] with a roommate, has a history of major depression, and was admitted on 10/27/22 08:15 on a 201 voluntary commitment for suicidal ideation with a plan towards which he'd made concrete preparations. Chief Complaint "Relatively speaking, somewhat improved". Review of Systems Sleep Information Total Hours of Sleep: 6.5 Meal Information Percent Meal Consumed - Breakfast: 100 Percent Meal Consumed - Lunch: 100 Percent Meal Consumed - Dinner: 100 Nutrition Comment: Pt ate meal after he woke up in the afternoon. Subjective Subjective Patient was seen & assessed and interval progress reviewed with treatment team Physical Exam Psychiatric Orientation: alert, oriented to person, oriented to place, oriented to time and cooperative Apperance: appeared stated age Eye Contact: + fair eye contact Motor Behavior: + psychomotor retardation Speech: normal rate/rhythm/volume of speech Affect: euthymic affect Mood: + anxious mood Thought Process: linear/logical thought process and clear/coherent thought process Thought Content: + obsessions, + cognitive distortions, + loneliness, + guilt and + self deprecation; no compulsions, no delusions and no hopelessness Suicidal Thoughts: denies suicidal thoughts (now - "feeling safe here"), denies suicidal plan (now - had concrete plan of high potential lethality prior to admission) and denies suicidal intent (now - but clear intent prior to admission) Homicidal Thoughts: denies homicidal thoughts Hallucinations: no auditory hallucinations and no visual hallucinations Cognition: recent memory grossly intact, remote memory grossly intact, attention grossly intact and language grossly intact Estimated Intelligence: + above average estimated intelligence Insight: + fair insight Judgment: + fair judgement Vital Signs (Past 24 Hours) Last Vital Signs Temp 36.8 C 10/30/22 06:32 Pulse 91 H 10/30/22 06:32 Resp 16 10/30/22 06:32 BP 108/69 10/30/22 06:32 Pulse Ox 100 10/27/22 09:33 O2 Del Method Room Air 10/27/22 09:33 Results & Data ([facility]) Current Inpatient Medications Current Inpatient Medications: Current Inpatient Medications Acetaminophen (Acetaminophen 325 Mg Tab) 650 mg PO Q4H PRN PRN Reason: Headache or Minor Fever Stop: 11/26/22 09:30 Al Hydrox/Mg Hydrox/Simethicone (Aluminum/Magnesium Susp 30 Ml Udc) 30 ml PO Q4H PRN PRN Reason: GI Upset Stop: 11/26/22 09:30 Bismuth Subsalicylate (Bismuth Subsalicylate Liqd 236 Ml) 15 ml PO PRN PRN PRN Reason: Loose Stool Stop: 11/26/22 09:30 Bupropion HCl (Bupropion Xl 150 Mg Tabcr) 150 mg PO QAM ILYA Stop: 11/26/22 13:44 Last Admin: 10/29/22 09:14 Dose: 150 mg Duloxetine HCl (Duloxetine Hcl 20 Mg Cap) 40 mg PO QAM ILYA Stop: 11/29/22 08:59 Hydroxyzine HCl (Hydroxyzine Hcl 25 Mg Tab) 50 mg PO HSZ PRN PRN Reason: Insomnia Stop: 11/26/22 09:30 Hydroxyzine HCl (Hydroxyzine Hcl 25 Mg Tab) 25 mg PO Q4H PRN PRN Reason: Anxiety Stop: 11/26/22 09:30 Magnesium Hydroxide (Magnesium Hydroxide Susp 30 Ml Udc) 30 ml PO DAILY PRN PRN Reason: Constipation Stop: 11/26/22 09:30 Sodium Chloride (Sodium Chloride 0.65% Na Soln 45 Ml ([place])) 1 - 2 sprays NA PRN PRN PRN Reason: Nasal Dryness/Congestion Stop: 11/26/22 09:30 Vitamin D (Cholecalciferol 5,000 Units 125 Mcg Tab) 5,000 units PO QAM ILYA Stop: 11/26/22 13:44 Last Admin: 10/29/22 09:14 Dose: 5,000 units Mental Health & Subst Abuse Tx Psychiatrist Name of Psychiatrist: Sonya Schultz Psychiatrist's Psychiatric Appointment Comment: [address] [place] [address] Therapist Name of Therapist: Patricia Noble Therapist's Date of Therapist Appointment: 11/10/2022 Time of Therapist Appointment: 7pm Therapy Appointment Comment: [address], [address], [place] [address] Excel Developer Name of Excel Developer: [facility] Phone Number for Excel Developer: [phone] Case Management Appointment Comment: Zoom Link will be sent to [facility] email Post Discharge Appointments Primary Care Physician Name Of Family Doctor/PCP: [facility] Primary Care Time of Appointment with PCP: please follow up as needed Provider Appointment Comment: [facility] [place] [place] Contact Information Discharge Discharge Address: [address] [place] [address], [address], [place], [address] (3) Obsessive compulsive disorder Obsessive-compulsive disorder type: mixed obsessional thoughts and acts Qualified Code(s): F42.2 - Mixed obsessional thoughts and acts
[2022-10-30] MEDS ORDERED: DULoxetine HCL 20 MG CAP PO SCH (09:00)
[2022-10-30] MEDS: CHOLECALCIFEROL 5,000 UNITS 125 MCG TAB PO SCH (09:04)
[2022-10-30] MEDS: buPROPion XL 150 MG TABCR PO SCH (09:04)
--- NOTE | 2022-10-31 07:50 | Discharge Summary ---
Date of Service October 31, 2022 History of Present Illness As part of my review of the medical record, I read the following note by the ED psychiatric pillowcase cleaner: "Reginald stated he was "one or two seconds away for committing suicide." He stated he is diagnosed with MDD and was recently inpatient on 3S. He is a "a mai man from [facility] and parliament almost has a bill passed banning homosexuality. It is close to passing and would make homosexuality punishable with 20 years senior care time." Reginald stated he was feeling very sad and hopeless. 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 He stated he obtained 1L of highly concentrated hydrochloric acid and had intent to drink it prior to coming to the ED. Reginald stated he gave the bottle of hydrochloric acid to nurse. Just stated "it was the closest I've ever been to suicide." He denies prior suicide attempts. He denies HI or aggression. He denies SIB. He denies medical issues. He denies alcohol or substance use. He denies trauma history. He denies hallucinations, paranoia, or delusional thinking. He denies legal issues. He stated he is prescribed medications and takes meds as prescribed. He denies trauma/abuse history. 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 He evidenced substantial improvement during that stay, which was certainly attributable to the milieu rather than to his having started bupropion. 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 He also addressed the "academic shortcomings" (assignments and research on which he'd gotten behind). Nevertheless, after a week or so during which he "felt pretty good", his mood began to decline again. A major factor has been recent [place] politics, especially criminalization of homosexuality. Pt has recently begun to realize that he's attracted to men, which had been a factor in his previous admission given his devout catholicism and [place] cultural factors. Since the recent legislative actions in [facility] regarding long penitentiary sentences for homosexuality he began to ruminate on the possibility that he "could spend 20 years in penitentiary" if he were to return to his home. He works in a [employer] lab and among the chemicals in frequent use there is hydrochloric acid. He figured that was likely the most toxic substance to which he had access so obtained 1 L of concentrated HCl (where "concentrated" refers to near-maximal aqueous concentration of about 38%, and is synonymous with the older term "fuming hydrochloric acid" because of visible hydrogen chloride gas evaporation) which is highly-corrosive and of which 1 L would be much greater than a fatal amount if it were possible to ingest it at one time. 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 He realized, after sitting in his office with the bottle of acid, that "it would be ridiculous" so came to the ED. Pt reports depressed mood, anhedonia, and ruminations about punishment (judicial and divine) for homosexuality but denies changes in sleep or appetite (which have been "OK", energy or interest (which have remained low), or ability to focus or concentrate. He "can't be sure" about libido changes. He denies any hallucinations and I can't elicit any evidence of delusions or unfounded persecutory beliefs (homosexuals in [place] are certainly being persecuted openly). Despite his intrusive suicidal thoughts he says he's "not sure" that he wants to be and doesn't want to hurt those about whom he cares. During his last stay I'd noted an obsessive, or at least highly ruminative, quality to much of his thinking and had entertained the possibility that He might have obsessive-compulsive disorder. Physical Exam Psychiatric Orientation: alert, oriented to person, oriented to place, oriented to time and cooperative Apperance: appeared stated age Eye Contact: + fair eye contact Speech: normal rate/rhythm/volume of speech Affect: euthymic affect Mood: + depressed mood and + anxious mood Thought Process: linear/logical thought process and clear/coherent thought process Thought Content: + obsessions, + cognitive distortions, + loneliness, + guilt and + self deprecation; no compulsions, no delusions and no hopelessness Suicidal Thoughts: denies suicidal thoughts (now - "feeling safe here"), denies suicidal plan (now - had concrete plan of high potential lethality prior to admission) and denies suicidal intent (now - but clear intent prior to admission) Homicidal Thoughts: denies homicidal thoughts Hallucinations: no auditory hallucinations and no visual hallucinations Cognition: recent memory grossly intact, remote memory grossly intact, attention grossly intact and language grossly intact Estimated Intelligence: + above average estimated intelligence Insight: + fair insight Judgment: + fair judgement Vital Signs (Past 24 Hours) Last Vital Signs Temp 36.9 C 10/31/22 06:00 Pulse 95 H 10/31/22 06:37 Resp 18 10/31/22 06:00 BP 117/56 L 10/31/22 06:37 Pulse Ox 100 10/27/22 09:33 O2 Del Method Room Air 10/27/22 09:33 Psychiatric Data See daily stay summary. In short, safety was maintained and the patient was cooperative with care. Medication changes included [] and they tolerated this well. A family session was [held] and safety plan was completed prior to discharge. Day of Discharge Assessment Today the patient voices readiness for discharge. They note improvement in mood and deny thoughts to harm self or others. Thoughts remain organized and they are improved from admission. There is no evidence of psychosis. They agree to take mediations as prescribed and keep follow-up appointments. They are stable for discharge to outpatient level of care. Advance Directives Advance Directives Information Provided: Yes Advance Directives: No Mental Health Advance Directive: No Advance Directives on File: No Living Will: No Power of [place]: No Advance Directives Reason:: Declines as Mental Health Visit. Suicide Risk Level Suicide Risk Level Comments: denies suicidal intent in the hospital and readily contracts for safety, but had multiple plans of high potential lethality for one of which he'd made all preparations and on which he was on the verge of acting Risk Factors Assessment Male: Yes : No Do You Have Access To A Gun?: No Health Problems: No Mental Health Diagnoses: Yes Substance Use Disorders: No Previous Attempt: No Family History of Suicide: No Previous Psychiatric Hospitalization: Yes Hopelessness: Yes Protective Factors Assessment Protestant Beliefs: Yes (strongly Zoroastrianism) : No Responsible for Young Children: No Employed: No Stable Relationships: Yes (though few) Supportive Family: Yes Good Rapport with Provider: Yes Discharge Data Lab Results 10/27/22 10/27/22 10/27/22 06:17 06:17 06:18 WBC RBC Hgb Hct MCV MCH MCHC RDW Std Deviation RDW Coeff of Criss Plt Count MPV Immature Gran % (Auto) Neut % (Auto) Lymph % (Auto) Andrew % (Auto) Eos % (Auto) Baso % (Auto) Neut # (Auto) Lymph # (Auto) Andrew # (Auto) Eos # (Auto) Baso # (Auto) Immature Gran # (Auto) Sodium Potassium Chloride Carbon Dioxide Anion Gap BUN Creatinine Est Cr Clr Drug Dosing Est GFR ( Amer) Est GFR (Non-Af Amer) BUN/Creatinine Ratio Glucose Calcium Total Bilirubin AST ALT Alkaline Phosphatase Total Protein Albumin Globulin Albumin/Globulin Ratio TSH Urine Color Yellow Urine Appearance Clear Urine pH 6.0 Ur Specific [place] >= 1.030 Urine Protein Trace H Urine Glucose (UA) Negative Urine Ketones Negative Urine Blood Negative Urine Nitrite Negative Urine Bilirubin 1+ H Urine Urobilinogen Negative Ur Leukocyte Esterase Negative Urine RBC 0-4 Urine WBC 0-5 Ur Epithelial Cells 0-5 Urine Bacteria 1+ H Urine Mucus Present A Salicylates Urine Opiates Screen Neg Ur Methadone, Qual Neg Acetaminophen Urine Barbiturates Neg Ur Phencyclidine (PCP) Neg U Amphetamin/Meth Scrn Neg MDMA (Ecstasy) Screen Pos H U Benzodiazepines Scrn Neg Ur Cocaine Metabolite Neg U Marijuana (THC) Screen Neg Ethyl Alcohol mg/dL SARS-CoV-2, RNA, NAAT NEGATIVE 10/27/22 10/27/22 10/27/22 06:32 06:32 06:32 WBC 4.07 L RBC 4.78 Hgb 14.1 Hct 42.2 MCV 88.3 MCH 29.5 MCHC 33.4 RDW Std Deviation 39.9 RDW Coeff of Criss 12.3 Plt Count 162 MPV 10.5 Immature Gran % (Auto) 0.2 Neut % (Auto) 49.3 Lymph % (Auto) 37.8 Andrew % (Auto) 9.1 Eos % (Auto) 3.4 Baso % (Auto) 0.2 Neut # (Auto) 2.00 Lymph # (Auto) 1.54 Andrew # (Auto) 0.37 Eos # (Auto) 0.14 Baso # (Auto) 0.01 Immature Gran # (Auto) 0.01 Sodium 140 Potassium 3.5 Chloride 107 Carbon Dioxide 26 Anion Gap 7 BUN 10 Creatinine 0.63 Est Cr Clr Drug Dosing 136.2 Est GFR ( Amer) > 150.0 Est GFR (Non-Af Amer) 138.9 BUN/Creatinine Ratio 15.9 Glucose 85 Calcium 9.2 Total Bilirubin 1.2 H AST 15 ALT 10 Alkaline Phosphatase 61 Total Protein 6.6 Albumin 4.4 Globulin 2.2 L Albumin/Globulin Ratio 2.0 TSH 3.025 Urine Color Urine Appearance Urine pH Ur Specific [place] Urine Protein Urine Glucose (UA) Urine Ketones Urine Blood Urine Nitrite Urine Bilirubin Urine Urobilinogen Ur Leukocyte Esterase Urine RBC Urine WBC Ur Epithelial Cells Urine Bacteria Urine Mucus Salicylates Urine Opiates Screen Ur Methadone, Qual Acetaminophen Urine Barbiturates Ur Phencyclidine (PCP) U Amphetamin/Meth Scrn MDMA (Ecstasy) Screen U Benzodiazepines Scrn Ur Cocaine Metabolite U Marijuana (THC) Screen Ethyl Alcohol mg/dL SARS-CoV-2, RNA, NAAT 10/27/22 10/27/22 06:32 06:32 WBC RBC Hgb Hct MCV MCH MCHC RDW Std Deviation RDW Coeff of Criss Plt Count MPV Immature Gran % (Auto) Neut % (Auto) Lymph % (Auto) Andrew % (Auto) Eos % (Auto) Baso % (Auto) Neut # (Auto) Lymph # (Auto) Andrew # (Auto) Eos # (Auto) Baso # (Auto) Immature Gran # (Auto) Sodium Potassium Chloride Carbon Dioxide Anion Gap BUN Creatinine Est Cr Clr Drug Dosing Est GFR ( Amer) Est GFR (Non-Af Amer) BUN/Creatinine Ratio Glucose Calcium Total Bilirubin AST ALT Alkaline Phosphatase Total Protein Albumin Globulin Albumin/Globulin Ratio TSH Urine Color Urine Appearance Urine pH Ur Specific [place] Urine Protein Urine Glucose (UA) Urine Ketones Urine Blood Urine Nitrite Urine Bilirubin Urine Urobilinogen Ur Leukocyte Esterase Urine RBC Urine WBC Ur Epithelial Cells Urine Bacteria Urine Mucus Salicylates < 3.0 L Urine Opiates Screen Ur Methadone, Qual Acetaminophen < 3 L Urine Barbiturates Ur Phencyclidine (PCP) U Amphetamin/Meth Scrn MDMA (Ecstasy) Screen U Benzodiazepines Scrn Ur Cocaine Metabolite U Marijuana (THC) Screen Ethyl Alcohol mg/dL < 10.0 SARS-CoV-2, RNA, NAAT Hospital Course (1) Major depressive disorder, single episode, severe with anxious distress: (2) Vitamin D deficiency: (3) Obsessive compulsive disorder: Plan 10/29/2022: * increase duloxetine to 60 mg daily * continue bupropion XL 150 mg daily * continue cholecalciferol to 5,000 IU daily 10/29/2022: * continue duloxetine 40 mg daily, anticipate titration to a target of 60 mg daily * continue bupropion XL 150 mg daily * continue cholecalciferol to 5,000 IU daily 10/28/2022: * increase duloxetine to 40 mg daily, anticipate titration to a target of 60 mg daily * continue bupropion XL 150 mg daily * continue cholecalciferol to 5,000 IU daily 10/27/2022: The patient was admitted to the [facility] ([facility] inpatient mental health unit) on q15 min checks (behavioral with suicide precautions) for safety. The patient will participate in group, recreational, and milieu therapies and will be offered additional individual and family sessions as clinically appropriate. * start duloxetine 20 mg daily, anticipate titration to a target of 60 mg daily * continue bupropion XL 150 mg daily * reduce (as planned at previous discharge) cholecalciferol to 5,000 IU daily Mental Health & Subst Abuse Tx Psychiatrist Name of Psychiatrist: Sonya Schultz Psychiatrist's Psychiatric Appointment Comment: [address] [place] [address] Therapist Name of Therapist: Patricia Noble Therapist's Date of Therapist Appointment: 11/10/2022 Time of Therapist Appointment: 7pm Therapy Appointment Comment: [address], [address], [place] [address] Lodging Facilities Manager Name of Lodging Facilities Manager: [employer] [facility] Phone Number for Lodging Facilities Manager: [phone] Case Management Appointment Comment: Zoom Link will be sent to [facility] email Post Discharge Appointments Primary Care Physician Name Of Family Doctor/PCP: [facility] Primary Care Time of Appointment with PCP: please follow up as needed Provider Appointment Comment: [facility] Other #1: Name of Aftercare Appointment: [facility] (support group) Phone Number of Aftercare Appointment: [phone] Time of Aftercare Appointment: please follow up if you'd like to join support group! Aftercare Appointment Comment: [address], [place] [address] Contact Information Discharge Discharge Address: [address], [address], [place], [address] Discharge Plan Discharge Items Patient Disposition: Home - Self-Care Reason For Visit: MAJOR DEPRESSIVE DISORDER Discharge Diagnosis: Major Depressive Disorder, Recurrent, Severe, with Anxious Distress Activity: Resume your previous activity Non-emergency contact: Primary Care Provider and Psychiatrist Call non-emergency contact if: you have any medication questions and your symptoms worsen Follow-up/Referrals: [place] [Primary Care Provider] - Diet: Regular Addtl Attending Provider Instructions: SPECIAL CARE INSTRUCTIONS: 1. Follow through with your scheduled aftercare appointments. If unable to keep an appointment, please call to reschedule. 2. Take your medication only as prescribed. Medication should not be changed or stopped without the approval of your doctor. In the event of worsening symptoms or concerns about side effects, contact your doctor immediately. 3. Utilize new healthy coping skills, anger management skills, and stress management skills learned during your hospitalization. Journal feelings and process them with a support person. Identify stressors or situations that may result in relapse, deterioration or inappropriate behaviors and develop a plan to deal with those issues. 4. If your coping skills are ineffective and you are in crisis, contact your outpatient providers for direction. If unable to reach your providers, please call the [facility] CRISIS LINE AT , go to the [facility] walk-in center at [address], [address], [place], or go to the closest Emergency Room. 5. Avoid alcohol and un-prescribed drugs. 6. You have been provided with the Mental Health Advance Directives Pamphlet for your review. 7. Your condition is stable for discharge to outpatient level of care, but recovery is an ongoing process. Ifthoughts to harm yourself or others return, follow the safety plan developed during your stay. Planning for a safe return home includes securing weapons. Our treatment team recommends weaponsbe removed from the home until your outpatient provider reassesses your progress. In rare cases where the items themselvescannot be removed, guns and ammunitionshould be secured separatelyand keys stored by a reliable personoutside of the home. If you were admitted on an involuntary commitment, the police or other legal authorities may be involved in this process. AFTERCARE APPOINTMENTS: * Please call your insurance company prior to your scheduled appointment to confirm your aftercare providers are covered. Take your insurance information to your appointments. WHO TO CALL AND WHEN: Medical Emergencies: For questions or emergencies related to your hospital stay, please contact the Inpatient Behavioral Health Unit at [phone]. A radioisotope production operator is on-call 09/02 for the Behavioral Health Unit for emergencies At any time you feel your situation is an emergency, you may also call 911 immediately. Pending Studies at Discharge: No Stand-Alone Forms: My [facility], Smoking Cessation Medications and DC Order Prescriptions: New duloxetine 60 mg Capsule,Delayed Release(Dr/Ec) 60 mg PO QAM 30 Days Qty: 30 0RF cholecalciferol (vitamin D3) 125 mcg (5,000 unit) Tablet 5,000 unit PO QAM 30 Days Qty: 30 0RF Continued omega-3 fatty acids Capsule 1 cap PO DAILY bupropion HCl 150 mg Tablet Extended Release 24 Hr 150 mg PO QAM Admission Data Admit Date/Time: 10/27/22 08:15 Attending Provider: Hamzah Mccray Admit Provider: Hamzah Mccray Primary Care Provider: [facility] Coding Diagnoses Major depressive disorder, single episode, severe with anxious distress F32.2 Vitamin D deficiency E55.9 Obsessive compulsive disorder F42.2 Obsessive-compulsive disorder type: mixed obsessional thoughts and acts
[2022-10-31] MEDS: CHOLECALCIFEROL 5,000 UNITS 125 MCG TAB PO SCH (09:12)
[2022-10-31] MEDS: buPROPion XL 150 MG TABCR PO SCH (09:12)
[2022-10-31] MEDS: DULoxetine HCL 60 MG CAP PO SCH (09:12)
--- NOTE | 2022-10-31 19:08 | Psychiatric Progress Note ---
Date of Service October 31, 2022 Impression / Recommendations Impression 22 y/o M with a recent history of severe depression, copious anxiety, and obsessive thoughts who formulated a suicide plan of high potential lethality for which he completed preparation. In addition to severe major depression, it seems increasingly clear that he has obsessive-compulsive disorder. He does appear to have benefitted to a degree from low-dose bupropion XL 150 mg daily in terms of ability to complete tasks (but this may have increased his risk of acting on suicidal thoughts). During his previous stay, he and I had spoken about the use of bupropion particularly to address his very poor motivation (which does seem to have improved somewhat) but that he might require an additional approach to target anxiety or obsessive thoughts - we'd reviewed specifically the possibility of future augmentation with duloxetine. 10/31/2022: Discharge had been anticipated today. However, pt's aunt was unable to drive from [place] today. The treatment team were unanimous in not feeling comfortable discharging him to home and insisting on his being discharged only when substantial support and supervision are available. Tolerated duloxetine at 60 mg dose today. 10/30/2022: Pt greets me nearly cheerfully this morning, asks me how I'm doing. His affect remains incongruously euthymic. He looks forward to a planned meeting later today to discuss an academic leave of absence. His aunt is planning to drive from [place] tomorrow and, absent any new or worse problems in the interim, return there with pt. Has tolerated increase of duloxetine to 40 mg x2 doses. 10/29/2022: As had been noted during pt's previous admission, his affect has brightened to a degree and with a rapidity that seems incongruous with the severity of his depression at admission. Spoke more about his thoughts about an academic leave of absence. He thinks he "probably should take about 6 months". I think that's probably appropriate, but told him that any academic leave should start with intensive outpatient treatment such as [facility]. He's considering going to stay with his aunt and uncle in [facility] so there should be multiple resources in that area. Reports he'd been highly apprehensive about a phone call with his mother today. In fact "it went very well" and she was very supportive and reassuring. Duloxetine was increased to 40 mg this morning. Thus far notes not adverse effects. : Reviewed pt's suicidal plans prior to admission. He'd also researched the heights of publicly-accessible buildings in [place] (thinking that in cities such as [place] or [facility] it'd be harder to gain access to tall buildings) since he didn't think any structures here were tall enough to ensure mortality if he jumped from one. Discussed his familiarity with concentrated HCl, and confirmed that it was "fuming". 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 He was fully-aware that it would cause severe, excruciatingly painful chemical kidd and most lik joseph end up inhaled due to choking and lead to fatal pulmonary edema. When I summarized this as "an agonizing, tortured " he replied "that was my intention". He was sitting in his office with the liter of acid in a boiling flask and noted the acridity as he raised it to his mouth and found himself considering means of protecting his mouth while drinking it ("maybe drinking through a piece of cloth") and concluded that this meant he was, after all, sufficiently ambivalent about suicide to warrant going to the ED. He did this clutching the bottle of acid, which he handed to a nurse. (We have confirmed that it was properly disposed of yesterday.) Pt discussed that he has dutifully followed every recommendation made at his discharge except he's been exercising slightly less than we'd discussed (for which he berates himself). He thought psychotherapy was "helpful" and thought he "was doing pretty well" for the first 3 weeks following discharge until the [place] parliament passed a new law making being homosexual punishable by 20 years' imprisonment or - not merely homosexual behavior. 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 He has tolerated duloxetine 20 mg x2 doses with no adverse effect so, if he notes no problems over the course of today, would like to increase the dose tomorrow. 10/27/2022: Revisited the discussion from previous admission regarding medication options, noting that anxiety continues to be a major factor. Increasing bupropion could be more effective for depression but carries a risk of exacerbating anxiety. An SNRI such as duloxetine has a complementary mechanism of antidepressant action and is often used to augment bupropion, and is also effective for a range of anxiety disorders including OCD and DANN. (1) Major depressive disorder, single episode, severe with anxious distress: (2) Vitamin D deficiency: (3) Obsessive compulsive disorder: Plan 10/31/2022: * continue duloxetine 60 mg daily * continue bupropion XL 150 mg daily * continue cholecalciferol 5,000 IU daily 10/30/2022: * increase duloxetine to 60 mg daily * continue bupropion XL 150 mg daily * continue cholecalciferol 5,000 IU daily 10/29/2022: * continue duloxetine 40 mg daily, anticipate titration to a target of 60 mg daily * continue bupropion XL 150 mg daily * continue cholecalciferol 5,000 IU daily 10/28/2022: * increase duloxetine to 40 mg daily, anticipate titration to a target of 60 mg daily * continue bupropion XL 150 mg daily * continue cholecalciferol 5,000 IU daily 10/27/2022: The patient was admitted to the [facility] ([facility]) on q15 min checks (behavioral with suicide precautions) for safety. The patient will participate in group, recreational, and milieu therapies and will be offered additional individual and family sessions as clinically appropriate. * start duloxetine 20 mg daily, anticipate titration to a target of 60 mg daily * continue bupropion XL 150 mg daily * reduce (as planned at previous discharge) cholecalciferol to 5,000 IU daily Inventory Assets Strengths: supportive relationships, has local supports,voluntary, good insight, intelligent employed Needs: safety and stabilization, medication adjustment, additional coping skills Suicide Risk Level Suicide Risk Level: High-Moderate (q15 min suicide checks) Suicide Risk Level Comments: denies suicidal intent in the hospital and readily contracts for safety, but had multiple plans of high potential lethality for one of which he'd made all preparations and on which he was on the verge of acting Risk Factors Assessment Male: Yes : No Do You Have Access To A Gun?: No Health Problems: No Mental Health Diagnoses: Yes Substance Use Disorders: No Previous Attempt: No Family History of Suicide: No Previous Psychiatric Hospitalization: Yes Hopelessness: Yes Protective Factors Assessment Sabianism Beliefs: Yes (strongly Mu-Ism) : No Responsible for Young Children: No Employed: No Stable Relationships: Yes (though few) Supportive Family: Yes Good Rapport with Provider: Yes Interval History Identifying Information GEETA HARPER is a 22-year-old M who currently lives in an apartment in [place] with a roommate, has a history of major depression, and was admitted on 10/27/22 08:15 on a 201 voluntary commitment for suicidal ideation with a plan towards which he'd made concrete preparations. Chief Complaint "My aunt couldn't come". Review of Systems Sleep Information Total Hours of Sleep: 6.5 Meal Information Percent Meal Consumed - Breakfast: 100 Percent Meal Consumed - Lunch: 100 Percent Meal Consumed - Dinner: 98 Nutrition Comment: Pt ate meal after he woke up in the afternoon. Subjective Subjective Patient was seen & assessed and interval progress reviewed with treatment team Physical Exam Psychiatric Orientation: alert, oriented to person, oriented to place, oriented to time and cooperative Apperance: appeared stated age Eye Contact: + fair eye contact Speech: normal rate/rhythm/volume of speech Affect: euthymic affect Mood: + depressed mood and + anxious mood Thought Process: linear/logical thought process and clear/coherent thought process Thought Content: + obsessions, + cognitive distortions, + loneliness, + guilt and + self deprecation; no compulsions, no delusions and no hopelessness Suicidal Thoughts: denies suicidal thoughts (now - "feeling safe here"), denies suicidal plan (now - had concrete plan of high potential lethality prior to admission) and denies suicidal intent (now - but clear intent prior to admission) Homicidal Thoughts: denies homicidal thoughts Hallucinations: no auditory hallucinations and no visual hallucinations Cognition: recent memory grossly intact, remote memory grossly intact, attention grossly intact and language grossly intact Estimated Intelligence: + above average estimated intelligence Insight: + fair insight Judgment: + fair judgement Vital Signs (Past 24 Hours) Last Vital Signs Temp 36.9 C 10/31/22 06:00 Pulse 95 H 10/31/22 06:37 Resp 18 10/31/22 06:00 BP 117/56 L 10/31/22 06:37 Pulse Ox 100 10/27/22 09:33 O2 Del Method Room Air 10/27/22 09:33 Results & Data ([facility]) Current Inpatient Medications Current Inpatient Medications: Current Inpatient Medications Acetaminophen (Acetaminophen 325 Mg Tab) 650 mg PO Q4H PRN PRN Reason: Headache or Minor Fever Stop: 11/26/22 09:30 Al Hydrox/Mg Hydrox/Simethicone (Aluminum/Magnesium Susp 30 Ml Udc) 30 ml PO Q4H PRN PRN Reason: GI Upset Stop: 11/26/22 09:30 Bismuth Subsalicylate (Bismuth Subsalicylate Liqd 236 Ml) 15 ml PO PRN PRN PRN Reason: Loose Stool Stop: 11/26/22 09:30 Bupropion HCl (Bupropion Xl 150 Mg Tabcr) 150 mg PO [facility] Stop: 11/26/22 13:44 Last Admin: 10/31/22 09:12 Dose: 150 mg Duloxetine HCl (Duloxetine Hcl 60 Mg Cap) [facility] Stop: 11/30/22 08:59 Last Admin: 10/31/22 09:12 Dose: 60 mg Hydroxyzine HCl (Hydroxyzine Hcl 25 Mg Tab) 50 mg PO HSZ PRN PRN Reason: Insomnia Stop: 11/26/22 09:30 Hydroxyzine HCl (Hydroxyzine Hcl 25 Mg Tab) 25 mg PO Q4H PRN PRN Reason: Anxiety Stop: 11/26/22 09:30 Magnesium Hydroxide (Magnesium Hydroxide Susp 30 Ml Udc) 30 ml PO DAILY PRN PRN Reason: Constipation Stop: 11/26/22 09:30 Sodium Chloride (Sodium Chloride 0.65% Na Soln 45 Ml ([place])) 1 - 2 sprays NA PRN PRN PRN Reason: Nasal Dryness/Congestion Stop: 11/26/22 09:30 Vitamin D (Cholecalciferol 5,000 Units 125 Mcg Tab) 5,000 units [facility] [place] Stop: 11/26/22 13:44 Last Admin: 10/31/22 09:12 Dose: 5,000 units Mental Health & Subst Abuse Tx Psychiatrist Name of Psychiatrist: [facility] - resume services when you return to [facility] Psychiatrist's Date Of Appointment With Psychiatric Provider: . Time of Appointment with Psychiatrist: . Psychiatric Appointment Comment: [address] [facility], [place] [address] Therapist Name of Therapist: Patricia Pearce- [facility] when you return to [facility] Therapist's Date of Therapist Appointment: . Time of Therapist Appointment: . Therapy Appointment Comment: [address], [place] [address] Senior Clinical Research Associate Name of Senior Clinical Research Associate: [employer] - Rosa Maria Morel Phone Number for Senior Clinical Research Associate: [phone] Date of Appointment with Senior Clinical Research Associate: 11/03/22 Time of Appointment with Senior Clinical Research Associate: 1:00 PM Case Management Appointment Comment: Virtual meeting link will be sent to [facility] email. Post Discharge Appointments Primary Care Physician Name Of Family Doctor/PCP: [facility] Primary Care Time of Appointment with PCP: please follow up as needed Provider Appointment Comment: [facility] Contact Information Discharge Discharge Address: [address], [place], [address] (3) Obsessive compulsive disorder Obsessive-compulsive disorder type: mixed obsessional thoughts and acts Qualified Code(s): F42.2 - Mixed obsessional thoughts and acts
[2022-11-01] MEDS: CHOLECALCIFEROL 5,000 UNITS 125 MCG TAB PO SCH (09:16)
[2022-11-01] MEDS: DULoxetine HCL 60 MG CAP PO SCH (09:16)
[2022-11-01] MEDS: buPROPion XL 150 MG TABCR PO SCH (09:16)
--- NOTE | 2022-11-01 09:52 | Discharge Summary ---
Date of Service November 01, 2022 History of Present Illness As part of my review of the medical record, I read the following note by the ED psychiatric clinical case manager: "Reginald stated he was "one or two seconds away for committing suicide." He stated he is diagnosed with MDD and was recently inpatient on 3S. He is a "a mai man from [facility] and parliament almost has a bill passed banning homosexuality. It is close to passing and would make homosexuality punishable with 20 years correction time." Reginald stated he was feeling very sad and hopeless. 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 He stated he obtained 1L of highly concentrated hydrochloric acid and had intent to drink it prior to coming to the ED. Reginald stated he gave the bottle of hydrochloric acid to nurse. Just stated "it was the closest I've ever been to suicide." He denies prior suicide attempts. He denies HI or aggression. He denies SIB. He denies medical issues. He denies alcohol or substance use. He denies trauma history. He denies hallucinations, paranoia, or delusional thinking. He denies legal issues. He stated he is prescribed medications and takes meds as prescribed. He denies trauma/abuse history. 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 He evidenced substantial improvement during that stay, which was certainly attributable to the milieu rather than to his having started bupropion. Pt says he has remained on medication and kept follow-up appointments as well as continuing to participate in the choir at his [employer] and starting in traditional dance classes and other activities as had been planned at that visit. He also addressed the "academic shortcomings" (assignments and research on which he'd gotten behind). Nevertheless, after a week or so during which he "felt pretty good", his mood began to decline again. A major factor has been recent [place] politics, especially criminalization of homosexuality. Pt has recently begun to realize that he's attracted to men, which had been a factor in his previous admission given his devout catholicism and [place] cultural factors. Since the recent legislative actions in [facility] regarding long [facility] sentences for homosexuality he began to ruminate on the possibility that he "could spend 20 years in [facility]" if he were to return to his home. He works in a [employer] lab and among the chemicals in frequent use there is hydrochloric acid. He figured that was likely the most toxic substance to which he had access so obtained 1 L of concentrated HCl (where "concentrated" refers to near-maximal aqueous concentration of about 38%, and is synonymous with the older term "fuming hydrochloric acid" because of visible hydrogen chloride gas evaporation) which is highly-corrosive and of which 1 L would be much greater than a fatal amount if it were possible to ingest it at one time. 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 He realized, after sitting in his office with the bottle of acid, that "it would be ridiculous" so came to the ED. Pt reports depressed mood, anhedonia, and ruminations about punishment (judicial and divine) for homosexuality but denies changes in sleep or appetite (which have been "OK", energy or interest (which have remained low), or ability to focus or concentrate. He "can't be sure" about libido changes. He denies any hallucinations and I can't elicit any evidence of delusions or unfounded persecutory beliefs (homosexuals in [place] are certainly being persecuted openly). Despite his intrusive suicidal thoughts he says he's "not sure" that he wants to be and doesn't want to hurt those about whom he cares. During his last stay I'd noted an obsessive, or at least highly ruminative, quality to much of his thinking and had entertained the possibility that He might have obsessive-compulsive disorder. Physical Exam Vital Signs (Past 24 Hours) Last Vital Signs Temp 36.9 C 11/01/22 06:00 Pulse 86 11/01/22 06:55 Resp 14 11/01/22 06:00 BP 111/75 11/01/22 06:55 Pulse Ox 100 10/27/22 09:33 O2 Del Method Room Air 10/27/22 09:33 See admission H&P and DOD summary. Principal Diagnosis Major Depressive Disorder with anxious distress Psychiatric Data See daily stay summary. In short, patient was engaged with the social/therapeutic milieu of the unit, safety was maintained and the patient was cooperative with care. Medication changes included addition of and titration of duloxetine for depression and anxiety and they tolerated this well. Much time was spent processing how his identity as a mai man can make him feel at conflict at times with his baptist beliefs as well as the main precipitant of his suicidal ideation and near attempt from the possibility of a new law in [facility] criminalizing homosexuality. Encouragingly during his admission he had frequent contact with a trusted wooden barrel mechanic and close friend from his undergraduate years at [employer] who offered him significant support and reassurance that his sexual orientation and baptist beliefs do not have to be at odd's. He received support from family and friends after disclosing to many of them for the first time his sexual orientation and this was also reassuring and helpful for him. A family session was held and safety plan was completed prior to discharge. He engaged in safety planning and in discussions about ways to seek support and recognizing warning signs and utilizing coping skills. Reviewed importance of seeking emergency care should SI intensify, worsen or should they feel unsafe in the future which they agree to do. On the day of discharge he stated his mood was "ready to go but also anxious because now I'll be talking more with the people I sent the suicide letter to before I came in". We discussed how he plans to navigate these conversations as well as brainstorming strategies to communicate with his research advisor about his plan to take some time away from his graduate work to do a PHP and be with his aunt. He remained future-oriented including seeing his aunt, packing his stuff, seeing his friends of a Ventilation Worker and Nuyola when they visit in November in [place] and engaging in aftercare appointments for partial hospitalization program in [place] and [facility] student care and advocacy. New script for duloxetine was initially sent to [facility] pharmacy but this script was canceled in favor of sending to [facility] pharmacy due to convenience of location for pickle pumper. Day of Discharge Assessment Today the patient voices readiness for discharge. They note improvement in mood and anxiety. They deny thoughts of harm to self or others. Thoughts are organized and they are clinically improved from admission. There is no evidence of psychosis. They improved in the hospital with support and medication adjustments. They agree to take medications as prescribed and keep follow-up appointments. At the time of the discharge they are deemed to be stable and appropriate for outpatient level of care. They are not deemed to be at imminent risk of harm to self or others. They are aware of emergency and crisis services. Knows to call 911 or go to nearest emergency care center if in a crisis which cannot be handled as an outpatient. Transition of Care Transition Of Care Record: was reviewed with the patient Advance Directives Advance Directives Information Provided: Yes Advance Directives: No Mental Health Advance Directive: No Advance Directives on File: No Living Will: No Power of Wind Energy Technician: No Advance Directives Reason:: Declines as Mental Health Visit. Suicide Risk Level Suicide Risk Level Comments: Acute risk is low given improvement in mood and denial of SI, lack of access to lethal means, plan to avoid substance use, hopefulness, processing driving factors leading to suicide rehearsal behaviors regarding seuxal orientation and impact of laws in [place]. Chronic risk is moderate given some non-modifiable risk factors: psychiatric co-morbid diagnoses, emotional reactivity, prior psychiatric hospitalizations but also with protective factors including: employed/student, good social support, sense of responsibility to family and social supports, outpatient care in place, positive coping skills, positive problem solving, capacity to establish therapeutic alliance, willingness to engage with treatment and capacity for self-observation. Counseled on ways to reduce acute and chronic risk including engaging with outpatient providers, using safety plan if needed, utilizing supports, taking medication, relying on support from trusted baptist figures/mentors and using coping skills. Modifiable risk factors of SI, anxiety and depression were addressed during hospitalization through development of new coping skills, family meeting, safety planning, and medication adjustments. 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 ) Stable Relationships: Yes Supportive Family: Yes Good Rapport with Provider: Yes Discharge Data Lab Results 10/27/22 10/27/22 10/27/22 06:17 06:17 06:18 WBC RBC Hgb Hct MCV MCH MCHC RDW Std Deviation RDW Coeff of Criss Plt Count MPV Immature Gran % (Auto) Neut % (Auto) Lymph % (Auto) [place] % (Auto) Eos % (Auto) Baso % (Auto) Neut # (Auto) Lymph # (Auto) [place] # (Auto) Eos # (Auto) Baso # (Auto) Immature Gran # (Auto) Sodium Potassium Chloride Carbon Dioxide Anion Gap BUN Creatinine Est Cr Clr Drug Dosing Est GFR ( Amer) Est GFR (Non-Af Amer) BUN/Creatinine Ratio Glucose Calcium Total Bilirubin AST ALT Alkaline Phosphatase Total Protein Albumin Globulin Albumin/Globulin Ratio TSH Urine Color Yellow Urine Appearance Clear Urine pH 6.0 Ur Specific Norman >= 1.030 Urine Protein Trace H Urine Glucose (UA) Negative Urine Ketones Negative Urine Blood Negative Urine Nitrite Negative Urine Bilirubin 1+ H Urine Urobilinogen Negative Ur Leukocyte Esterase Negative Urine RBC 0-4 Urine WBC 0-5 Ur Epithelial Cells 0-5 Urine Bacteria 1+ H Urine Mucus Present A Salicylates Urine Opiates Screen Neg Ur Methadone, Qual Neg Acetaminophen Urine Barbiturates Neg Ur Phencyclidine (PCP) Neg U Amphetamin/Meth Scrn Neg MDMA (Ecstasy) Screen Pos H U Benzodiazepines Scrn Neg Ur Cocaine Metabolite Neg U Marijuana (THC) Screen Neg Ethyl Alcohol mg/dL SARS-CoV-2, RNA, NAAT NEGATIVE 10/27/22 10/27/22 10/27/22 06:32 06:32 06:32 WBC 4.07 L RBC 4.78 Hgb 14.1 Hct 42.2 MCV 88.3 MCH 29.5 MCHC 33.4 RDW Std Deviation 39.9 RDW Coeff of Criss 12.3 Plt Count 162 MPV 10.5 Immature Gran % (Auto) 0.2 Neut % (Auto) 49.3 Lymph % (Auto) 37.8 [place] % (Auto) 9.1 Eos % (Auto) 3.4 Baso % (Auto) 0.2 Neut # (Auto) 2.00 Lymph # (Auto) 1.54 [place] # (Auto) 0.37 Eos # (Auto) 0.14 Baso # (Auto) 0.01 Immature Gran # (Auto) 0.01 Sodium 140 Potassium 3.5 Chloride 107 Carbon Dioxide 26 Anion Gap 7 BUN 10 Creatinine 0.63 Est Cr Clr Drug Dosing 136.2 Est GFR ( Amer) > 150.0 Est GFR (Non-Af Amer) 138.9 BUN/Creatinine Ratio 15.9 Glucose 85 Calcium 9.2 Total Bilirubin 1.2 H AST 15 ALT 10 Alkaline Phosphatase 61 Total Protein 6.6 Albumin 4.4 Globulin 2.2 L Albumin/Globulin Ratio 2.0 TSH 3.025 Urine Color Urine Appearance Urine pH Ur Specific Norman Urine Protein Urine Glucose (UA) Urine Ketones Urine Blood Urine Nitrite Urine Bilirubin Urine Urobilinogen Ur Leukocyte Esterase Urine RBC Urine WBC Ur Epithelial Cells Urine Bacteria Urine Mucus Salicylates Urine Opiates Screen Ur Methadone, Qual Acetaminophen Urine Barbiturates Ur Phencyclidine (PCP) U Amphetamin/Meth Scrn MDMA (Ecstasy) Screen U Benzodiazepines Scrn Ur Cocaine Metabolite U Marijuana (THC) Screen Ethyl Alcohol mg/dL SARS-CoV-2, RNA, NAAT 10/27/22 10/27/22 06:32 06:32 WBC RBC Hgb Hct MCV MCH MCHC RDW Std Deviation RDW Coeff of Criss Plt Count MPV Immature Gran % (Auto) Neut % (Auto) Lymph % (Auto) [place] % (Auto) Eos % (Auto) Baso % (Auto) Neut # (Auto) Lymph # (Auto) [place] # (Auto) Eos # (Auto) Baso # (Auto) Immature Gran # (Auto) Sodium Potassium Chloride Carbon Dioxide Anion Gap BUN Creatinine Est Cr Clr Drug Dosing Est GFR ( Amer) Est GFR (Non-Af Amer) BUN/Creatinine Ratio Glucose Calcium Total Bilirubin AST ALT Alkaline Phosphatase Total Protein Albumin Globulin Albumin/Globulin Ratio TSH Urine Color Urine Appearance Urine pH Ur Specific Norman Urine Protein Urine Glucose (UA) Urine Ketones Urine Blood Urine Nitrite Urine Bilirubin Urine Urobilinogen Ur Leukocyte Esterase Urine RBC Urine WBC Ur Epithelial Cells Urine Bacteria Urine Mucus Salicylates < 3.0 L Urine Opiates Screen Ur Methadone, Qual Acetaminophen < 3 L Urine Barbiturates Ur Phencyclidine (PCP) U Amphetamin/Meth Scrn MDMA (Ecstasy) Screen U Benzodiazepines Scrn Ur Cocaine Metabolite U Marijuana (THC) Screen Ethyl Alcohol mg/dL < 10.0 SARS-CoV-2, RNA, NAAT Hospital Course (1) Major depressive disorder, single episode, severe with anxious distress: (2) Vitamin D deficiency: (3) Obsessive compulsive disorder: Plan 10/31/2022: * continue duloxetine 60 mg daily * continue bupropion XL 150 mg daily * continue cholecalciferol 5,000 IU daily 10/30/2022: * increase duloxetine to 60 mg daily * continue bupropion XL 150 mg daily * continue cholecalciferol 5,000 IU daily 10/29/2022: * continue duloxetine 40 mg daily, anticipate titration to a target of 60 mg daily * continue bupropion XL 150 mg daily * continue cholecalciferol 5,000 IU daily 10/28/2022: * increase duloxetine to 40 mg daily, anticipate titration to a target of 60 mg daily * continue bupropion XL 150 mg daily * continue cholecalciferol 5,000 IU daily 10/27/2022: The patient was admitted to the [facility] ([facility] mental health unit) on q15 min checks (behavioral with suicide precautions) for safety. The patient will participate in group, recreational, and milieu therapies and will be offered additional individual and family sessions as clinically appropriate. * start duloxetine 20 mg daily, anticipate titration to a target of 60 mg daily * continue bupropion XL 150 mg daily * reduce (as planned at previous discharge) cholecalciferol to 5,000 IU daily Mental Health & Subst Abuse Tx Psychiatrist Name of Psychiatrist: [facility] - resume services when you return to [facility] Psychiatrist's Date Of Appointment With Psychiatric Provider: . Time of Appointment with Psychiatrist: . Psychiatric Appointment Comment: [address], [place] [address] [facility], resume services when you return to [facility] Therapist's Date of Therapist Appointment: . Time of Therapist Appointment: . Therapy Appointment Comment: [address], [place] [address] Tax Lawyer Name of Tax Lawyer: Student Care and Advocacy - Rosa Maria Morel Phone Number for Tax Lawyer: [phone] Date of Appointment with Tax Lawyer: 11/03/22 Time of Appointment with Tax Lawyer: 1:00 PM Case Management Appointment Comment: Virtual meeting link will be sent to [facility] email. Post Discharge Appointments Primary Care Physician Name Of Family Doctor/PCP: [email or web address] Primary Care Time of Appointment with PCP: please follow up as needed Provider Appointment Comment: [facility] [place] Other #1: Name of Aftercare Appointment: [facility] (Support Group) Phone Number of Aftercare Appointment: [phone] Time of Aftercare Appointment: Please follow up to join support group when you return to town. Aftercare Appointment Comment: [address] [place] [address] #2: Name of Aftercare Appointment: [facility] Partial Hospitalization Program - [place] Phone Number of Aftercare Appointment: [phone] Time of Aftercare Appointment: Go to Walk In Clinic between 10am-10pm, Thursday-Thursday Aftercare Appointment Comment: [address], [place] [address] #3: Name of Aftercare Appointment: [facility] Phone Number of Aftercare Appointment: [phone] Date of Aftercare Appointment: 11/05/22 Time of Aftercare Appointment: 8:00 AM Aftercare Appointment Comment: in person for first - [id number], [place] [address] Contact Information Discharge Discharge Address: [address], [place], [address] Discharge Plan Discharge Items Patient Disposition: Home - Self-Care Reason For Visit: MAJOR DEPRESSIVE DISORDER Discharge Diagnosis: Major Depressive Disorder, Recurrent, Severe, with Anxious Distress Activity: Resume your previous activity Non-emergency contact: Primary Care Provider and Psychiatrist Call non-emergency contact if: you have any medication questions and your symptoms worsen Follow-up/Referrals: [facility] [Primary Care Provider] - Diet: Regular Addtl Attending Provider Instructions: SPECIAL CARE INSTRUCTIONS: 1. Follow through with your scheduled aftercare appointments. If unable to keep an appointment, please call to reschedule. 2. Take your medication only as prescribed. Medication should not be changed or stopped without the approval of your doctor. In the event of worsening symptoms or concerns about side effects, contact your doctor immediately. 3. Utilize new healthy coping skills, anger management skills, and stress management skills learned during your hospitalization. Journal feelings and process them with a support person. Identify stressors or situations that may result in relapse, deterioration or inappropriate behaviors and develop a plan to deal with those issues. 4. If your coping skills are ineffective and you are in crisis, contact your outpatient providers for direction. If unable to reach your providers, please call the [facility] CRISIS LINE AT , go to the [facility] walk-in center at [address], [place], or go to the closest Emergency Room. 5. Avoid alcohol and un-prescribed drugs. 6. You have been provided with the Mental Health Advance Directives Pamphlet for your review. 7. Your condition is stable for discharge to outpatient level of care, but recovery is an ongoing process. Ifthoughts to harm yourself or others return, follow the safety plan developed during your stay. Planning for a safe return home includes securing weapons. Our treatment team recommends weaponsbe removed from the home until your outpatient provider reassesses your progress. In rare cases where the items themselvescannot be removed, guns and ammunitionshould be secured separatelyand keys stored by a reliable personoutside of the home. If you were admitted on an involuntary commitment, the police or other legal authorities may be involved in this process. AFTERCARE APPOINTMENTS: * Please call your insurance company prior to your scheduled appointment to confirm your aftercare providers are covered. Take your insurance information to your appointments. WHO TO CALL AND WHEN: Medical Emergencies: For questions or emergencies related to your hospital stay, please contact the Inpatient Behavioral Health Unit at [phone]. A application support lead is on-call 09/02 for the Behavioral Health Unit for emergencies At any time you feel your situation is an emergency, you may also call 911 immediately. Pending Studies at Discharge: No Stand-Alone Forms: [facility] Medications and DC Order Prescriptions: New duloxetine 60 mg Capsule,Delayed Release(Dr/Ec) 60 mg PO QAM 30 Days Qty: 30 0RF cholecalciferol (vitamin D3) 125 mcg (5,000 unit) Tablet 5,000 unit PO QAM 30 Days Qty: 30 0RF duloxetine 60 mg capsule,delayed release(DR/EC) 60 mg PO DAILY 30 Days Qty: 30 0RF Continued omega-3 fatty acids Capsule 1 cap PO DAILY bupropion HCl 150 mg Tablet Extended Release 24 Hr 150 mg PO QAM Discharge Orders: Discharge Order (Routine); Ordered 11/01/22 Ordered By: Romi Carr/Other Patient Handouts: Depression: Tips to Help Yourself Admission Data Admit Date/Time: 10/27/22 08:15 Attending Provider: Romi Jay Admit Provider: Hamzah Mccray Primary Care Provider: [facility] Other Interventions: Discharge Summary Assessment (RN) Last Done: 11/01/22 13:31 PSY Interdisciplinary Discharge Planning Last Done: 11/01/22 17:53 Coding Level of Care Code 76639 D/C day mgmt > 30 min Diagnoses Major depressive disorder, single episode, severe with anxious distress F32.2 Vitamin D deficiency E55.9 Obsessive compulsive disorder F42.2 Obsessive-compulsive disorder type: mixed obsessional thoughts and acts Time Spent (min) 65
[2022-11-02 12:07] LABS: MDA negative; MDEA negative; MDMA (Ecstasy) Urine, Confirm negative
== END 2022-11-01 18:35 | disposition home or self-care (01) | DRG 885 ==
LOC: ED 05:56 → 3S 08:15 → SUATTDRO 08:15 → 3S 09:32
DX: R45.851 Suicidal ideations; F32.2 Major depressive disorder, single episode, severe without psychotic features; E55.9 Vitamin D deficiency, unspecified; F42.2 Mixed obsessional thoughts and acts